=== PATIENT | male | born 1990 | race Hispanic/Latino ===

== ENCOUNTER 2021-11-01 12:56 | Emergency (ER) | payer SELFPAY ==
--- OUTSIDE RECORDS SUMMARY | 2021-11-01 13:00 | XMS REPORT | Continuity of Care Document ---
:1990 Author Organization [facility] t Address [address] [place] [address] Care Team Providers Name Role Phone PCP, PATIENT DOES NOT HAVE A Primary Care Physician Unavaila Lucas Patterson DO Attending Clinician Lucas RODRIGUEZ Attending Clinician Unavailable Steph HERCULES S Attending Clinician Miguel HERCULES Attending Clinician MIGUEL Attending Clinician Unavailable MIGUEL Admitting Clinician Unavailable Payers Payer Name Policy Type Policy Number Effective Date Expiration Date S [facility] [id number] 2019 PPO 00:00:00 Problems Condition Condition Condition Status Onset Resolution Last Treating Co mments Source Name Details Category Date Date Treatment Clinician Date No known No known Disease Unive rs active active ity of problems problems [facility] Allergies, Adverse Reactions, Alerts Allergy Allergy Status Severity Reaction(s) Onset Inactive Treating Comm ents Source Name Type Date Date Clinician NO KNOWN Drug Active Univers ALLERGIE Class ity of S [facility] Social History Social Habit Start Date Stop Date Quantity Comments Source Exposure to Not sure [facility] SARS-CoV-2 (event) Medica l Branch Sex Assigned At [birth year] [facility] 00:00:00 00:00:00 [facility] Smoking Status Start Date Stop Date Source Unknown if ever smoked [facility] Medications Ordered Filled Start Stop Current Ordering Indication Dosage Frequency Signature Comments Components Source Medication Medication Date Date Medication? Clinician (SIG) Name Name aspirin Yes 324mg 324 mg, Univer s chewable 2-15 Oral, ity of tablet 324 15:00: DAILY, [place] mg 00 First dose Medical on Mon Branch 09/21/20 at 0900, Until Discontinu ed, Routine ondansetron 2020- No 4mg 4 mg, Slow Univers (ZOFRAN 09-21 IV Push, ity of (PF)) 10:45: 09:58 ONCE, 1 [place] injection 4 00 :00 dose, Mon Med ical mg 09/21/20 at Branch 0445, DEMETRIO morpHINE 2020- No 4mg 4 mg, Slow Un lauren injection 4 09-21 IV Push, ity of mg 10:45: 09:55 ONCE, 1 [place] 00 :00 dose, Mon Medical 09/21/20 at Branch 0445, STAT KCL 2020- No 40meq 40 mEq, Univers (KLOR-CON 09-21 Oral, ity of M20) tablet 10:45: 09:53 [place] mEq 00 :00 dose, [facility] 09/21/20 at [place] [id number], Routine No known No Univers medications [facility] No known No Univers medications [facility] No known No Univers medications [facility] Vital Signs Vital Name Observation Time Observation Value Comments Source Systolic blood 2021-01-14 01:05:00 110 mm[Hg] Univer sity pressure [facility] Diastolic blood 2021-01-14 01:05:00 88 mm[Hg] Unive [facility] Heart rate 2021-01-14 01:05:00 91 /min [facility] Body temperature 2021-01-14 01:05:00 37.11 Jenn [facility] Respiratory rate 2021-01-14 01:05:00 17 /min [facility] Body height 2021-01-14 01:05:00 185.4 cm [facility] Body weight 2021-01-14 01:05:00 115.667 kg [facility] BMI 2021-01-14 01:05:00 33.64 kg/m2 [facility] Oxygen saturation in 2021-01-14 01:05:00 100 /min [facility] Arterial blood by [facility] Pulse oximetry Branch Systolic blood 2020-09-21 10:10:00 134 mm[Hg] Univer sity of pressure [facility] Branch Diastolic blood 2020-09-21 10:10:00 91 mm[Hg] Unive rsity of pressure [facility] [place] [facility] Heart rate 2020-09-21 10:10:00 64 /min [facility] [place] [facility] Respiratory rate 2020-09-21 09:30:00 12 /min Univ ersity of [facility] [place] [facility] Oxygen saturation in 2020-09-21 09:30:00 100 /min University of Arterial blood by [facility] Pulse oximetry Branch Body temperature 2020-09-21 07:13:00 36 Jenn [address]ity of [facility] Body weight 2020-09-21 07:13:[address] [facility] BMI 2020-09-21 07:13:00 32.10 kg/m2 Universi ty of [facility] Systolic blood 2019-10-05 08:00:00 112 mm[Hg] Univer sity of pressure [facility] Diastolic blood 2019-10-05 08:00:00 66 mm[Hg] Unive rsity of pressure [facility] Heart rate 2019-10-05 08:00:00 79 /min [facility] [place] [facility] Respiratory rate 2019-10-05 08:00:00 15 /min Univ ersity of [facility] [place] [facility] Oxygen saturation in 2019-10-05 08:00:00 98 /min University of Arterial blood by [facility] Pulse oximetry Branch Body temperature 2019-10-05 07:43:00 35.94 Jenn [facility] [place] [facility] ersity of [facility] Body height 2019-10-05 07:43:00 188 cm [facility] [place] [facility] Body weight 2019-10-05 07:43:00 111.131 kg [facility] [place] [facility] BMI 2019-10-05 07:43:00 31.46 kg/m2 [facility] [place] [facility] Procedures Procedure Date / Time Performing Clinician Source Performed CT HEAD WO CONTRAST 2021-01-14 02:16:47 [facility] NOTICE OF PRIVACY 2021-01-14 01:05:51 Doctor Unassigned, [facility] Branch CONSENT/REFUSAL FOR 2021-01-14 01:05:19 Doctor Unassigned, No [facility] AND TREATMENT Name Medical Branch XR CHEST 1 VW 2020-09-21 08:17:03 Gricelda Choi [facility] LIPASE 2020-09-21 07:51:00 Steph Nmliliana [facility] COMP. METABOLIC PANEL 2020-09-21 07:51:00 Gricelda Choi [facility] ([id number]) Medical Branch CBC WITH DIFF 2020-09-21 07:51:00 Gricelda Choi [facility] PROTHROMBIN TIME / INR 2020-09-21 07:51:00 [facility] - [facility] SCREEN 2019-10-05 07:55:00 Miguel [facility] TRIAGE [facility] LIPASE 2019-10-05 07:54:00 Miguel Navid [facility] TROPONIN I 2019-10-05 07:54:00 Navid Geronimo [facility] FREE T4 2019-10-05 07:54:00 Navid Geronimo [facility] THYROID STIMULATING 2019-10-05 07:54:00 Navid Geronimo [facility] HORMONE [facility] HEPATIC FUNCTION PANEL 2019-10-05 07:54:00 Navid Geronimo [facility] ([id number]) (ALB,T.PRO,BILI [facility] Branch T,BU/BC,ALT,AST,ALK PHOS) BASIC METABOLIC PANEL 2019-10-05 07:54:00 Navid Geronimo [facility] (NA, K, CL, CO2, Medical Branch GLUCOSE, BUN, CREATININE, CA) ETHANOL 2019-10-05 07:54:00 Navid Geronimo [facility] CBC WITH DIFFERENTIAL 2019-10-05 07:54:[address] [facility] PROTHROMBIN TIME / INR 2019-10-05 07:54:00 Navid Geronimo [facility] ACTIVATED PARTIAL 2019-10-05 07:54:00 Navid Geronimo [facility] THRMPLAS DARIANA [facility] XR CHEST 1 VW 2019-10-05 07:44:09 Navid Geronimo [facility] EKG-12 LEAD 2019-10-05 07:31:05 Navid Geronimo [facility] Encounters Start End Encounter Admission Attending Care Care Encounter Source Date/Time Date/Time Type Type Clinicians Facility Department ID 2021-01-13 2021-01-13 Emergency Jennifer [facility] [id number] Univers 20:22:00 22:25:00 Lynnette Hernandez [id number] ity of [place] [id number] [facility] [id number] [address] 2021-01-13 2021-01-13 [facility] [id number] Univers 20:22:00 20:22:[address] [facility] [place] 2020-09-21 2020-09-21 Emergency Steph [facility] [id number] Univers 01:12:00 04:26:00 Gricelda Hernandez [id number] ity of [place] [id number] [facility] [id number] [address] 2020-09-21 2020-09-21 Emergency X [facility] ERT [id number] Univers 01:12:00 01:12:[address] [facility] 2019-10-05 2019-10-05 [facility] [id number] Univers 01:34:52 03:02:00 Navid Hernandez [id number] i ty of [place] [id number] [facility] [id number] [address] 2019-10-05 2019-10-05 Emergency [facility] [id number] Univers 01:34:52 03:02:00 NAVID masoud [facility] Results Test Test Test Results Result Source Description Time Comments Comments CT Head W/O 2021-01- No acute intracranial U niversity of Contrast 10 abnormality. Left [facility] 02:30:51 cranial fossa arachnoid B ranch cyst. CT HEAD WO CONTRAST HISTORY: Male 30 years RE[place], h/o brain cyst COMPARISON: None TECHNIQUE: Noncontrast CT images of the head with multiplanar reformats. FINDINGS: Cystic lesion in the left middle cranial fossa with mass effect on theunderlying left temporal pole measures 5.7 x 3.7 cm in axial dimension andlikely reflects an arachnoid cyst. Incidental cavum septa pellucidum et vergae. ?The ventricles and sulci areotherwise normal in size and configuration. No intracranial abnormalitysuch as hemorrhage, edema, midline shift or hydrocephalus. The basalcisterns are patent. Incidental malena cisterna magna. No parenchymal attenuation abnormality. The douglas-white matterdifferentiation is preserved. The calvarium and skull base are intact. ?The paranasal sinuses and mastoidair cells are clear. [facility], Radiant Results Inft User - 01/13/2021 9:[address] HEAD WO CONTRASTHISTORY: Male 30 years [place], h/o brain cyst COMPARISON: NoneTECHNIQUE: Noncontrast CT images of the head with multiplanar reformats.FINDINGS:Cystic lesion in the left middle cranial fossa with mass effect on theunderlying left temporal pole measures 5.7 x 3.7 cm in axial dimension andlikely reflects an arachnoid cyst. Incidental cavum septa pellucidum et vergae. The ventricles and sulci areotherwise normal in size and configuration. No intracranial abnormalitysuch as hemorrhage, edema, midline shift or hydrocephalus. The basalcisterns are patent. Incidental malena cisterna magna.No parenchymal attenuation abnormality. The douglas-white matterdifferentiation is preserved.The calvarium and skull base are intact. The paranasal sinuses and mastoidair cells are clear.IMPRESSIONNo acute intracranial abnormality.Left middle cranial fossa arachnoid cyst. PROTHROMBIN TIME / INR 2020-09-21 08:18:00 Test Item Value Reference Range Interpretation Comme nts PROTIME PATIENT (test code = See_Comment [Automated message] The system 5964-2) which generated this result transmitted ref erence range: 12.0 - 14.7 Seconds. The reference range was not u sed to interpret this result as normal/abnormal. INR (test code = 6301-6) Nor mal INR <1.1; Warfarin Therapeutic ran ge 2.0 to 3.0 or 2.5 to 3.5, dep ending upon the indications. Lab Interpretation (test code = Normal 06674-2) [facility]. METABOLIC PANEL ([id number])2020-09-21 08:17:00 Test Item Value Reference Range Interpretation Comments NA (test code = 139 mmol/L 135-145 8767927768) K (test code = 3.2 mmol/L 3.5-5 L 6683312317) CL (test code = 108 mmol/L 98-108 5343784776) CO2 TOTAL (test code = 22 mmol/L 23-31 L 1914496057) AGAP (test code = 2-16 3433064416) BUN (test code = 8 mg/dL 7-23 2677172070) GLUCOSE (test code = 117 mg/dL 70-110 H 4053889503) CREATININE (test code = 0.75 mg/dL 0.6-1.25 0329457590) TOTAL BILI (test code = 1.4 mg/dL 0.1-1.1 H 1951266706) CALCIUM (test code = 9.2 mg/dL 8.6-10.6 4186395674) T PROTEIN (test code = 7.1 g/dL 6.3-8.2 3507320790) ALBUMIN (test code = 4.4 g/dL 3.5-5 1822016323) ALK PHOS (test code = 64 U/L 34-122 7486844830) ALTv (test code = 51 U/L 5-50 H 1742-6) AST(SGOT) (test code = 35 U/L 13-40 7866821454) eGFR Calculation mL/min/1.73m2 (Non-) (test code = 3892967245) eGFR Calculation mL/min/1.73m2 () (test code = 7290900158) PACHECO (test code = PACHECO) Association of Glomerular Filtration Rate (GFR) and Staging of Kidney Disease* + --+ --+ ------+| GFR (mL/min/1.73 m2) ?| With Kidney Damage ?| ?Without Kidney Damage+ --------+ --------+ +| ?>90 ?| ?Stage one ?| ? Normal ?+ ---+ ---+ -------+| ?60-89 ?| ?Stage two ?| ? Decreased GFR ? + --+ --+ ------+| ?30-59 ?| ?Stage three ?| ? Stage three ? + --+ --+ ------+| ?15-29 ?| ?Stage four ? | ? Stage four ?+ ---+ ---+ -------+| ?<15 (or dialysis) ? ?| ?Stage five ? | ? Stage five ?+ ---+ ---+ -------+ *Each stage assumes the associated GFR level has been in effect for at least three months. ?Stages 1 to 5, with or without kidney disease, indicate chronic kidney disease. Notes: Determination of stages one and two (with eGFR >59mL/min/1.73 m2) requires estimation of kidney damage for at least three months as defined by structural or functional abnormalities of the kidney, manifested by either:Pathological abnormalities or Markers of kidney damage (including abnormalities in the composition of the blood or urine or abnormalities in imaging tests). Lab Interpretation Abnormal (test code = 29417-5) [facility] [id number] 08:16:00 Test Item Value Reference Range Interpretation Comments LIPASE (test code = 2235645469) 241 U/L 0-220 H Lab Interpretation (test code = Abnormal 46095-2) [facility] WITH [id number] 08:03:00 Test Item Value Reference Range Interpretation Comments WBC (test code = See_Comment [Automated 4955-2) message] The sy stem which generated this result transmitted reference range : 4.20 - 10.70 10*3/?L. The reference range was not used to interpret this result as normal/abnormal . RBC (test code = See_Comment [Automated 452-8) message] The sy stem which generated this result transmitted reference range : 4.26 - 5.52 10*6/?L. The reference range was not used to interpret this result as normal/abnormal . HGB (test code = 15.0 g/dL 12.2-16.4 718-7) HCT (test code = 43.3 % 38.4-49.3 4544-3) MCV (test code = 82.8 fL 81.7-95.6 787-2) MCH (test code = 28.7 pg 26.1-32.7 785-6) MCHC (test code = 34.6 g/dL 31.2-35 786-4) RDW-SD (test code = 35.9 fL 38.5-51.6 L 53452-5) RDW-CV (test code = 11.9 % 12.1-15.4 L 788-0) PLT (test code = See_Comment [Automated 777-3) message] The sy stem which generated this result transmitted reference range : 150 - 328 10*3/ ?L. The reference r emiliano was not used to interpret this result as normal/abnormal . MPV (test code = 12.1 fL 9.8-13 43140-5) NRBC/100 WBC (test See_Comment [Automat ed code = 8171435052) message] The system which generated this result transmitted reference range : 0.0 - 10.0 /100 WBCs. The refer ence range was not u sed to interpret th is result as normal/abnormal . NRBC x10^3 (test code <0.01 See_Comment [Auto mated = 2470528778) message] The s ystem which generated this result transmitted reference range : 10*3/?L. The reference range was not used to interpret this result as normal/abnormal . GRAN MAT (NEUT) % 58.1 % (test code = 770-8) IMM GRAN % (test code 1.00 % = 1085993790) LYMPH % (test code = 30.0 % 736-9) MONO % (test code = 6.9 % 5905-5) EOS % (test code = 3.2 % 713-8) BASO % (test code = 0.8 % 706-2) GRAN MAT x10^3(ANC) 4.55 10*3/uL 1.99-6.95 (test code = 7620807060) IMM GRAN x10^3 (test 0.08 10*3/uL 0-0.06 H code = 8127769292) LYMPH x10^3 (test code 2.35 10*3/uL 1.09-3.23 = 731-0) MONO x10^3 (test code 0.54 10*3/uL 0.36-1.02 = 742-7) EOS x10^3 (test code = 0.25 10*3/uL 0.06-0.53 711-2) BASO x10^3 (test code 0.06 10*3/uL 0.01-0.09 = 704-7) Lab Interpretation Abnormal (test code = 52854-3) [facility] STIMULATING [id number] 08:48:00 Test Item Value Reference Range Interpretation Comments TSH (test code = See_Comment [Automated message] 6835620863) The system Lil Monkey Butt generated this result transmitted ref erence range: 0.45 - 4 .70 mIU/L. The refe rence range was not u sed to interpret this result as normal/abnor mal. Lab Interpretation (test Normal code = 93632-5) [facility] [id number] 08:35:00 Test Item Value Reference Range Interpretation Comments FREE T4 (test code = 6746184345) 1.09 ng/dL 0.78-2.2 Lab Interpretation (test code = Normal 34282-1) [facility]evilleTroponin [id number] 08:30:00 Test Item Value Reference Range Interpretation Comments TROPONIN I (test 0.001 ng/mL See_Comment [Automated code = 1820206675) message] The system which generated this result transmitted reference range : <=0.034. The reference range was not used to interpret this result as normal/abnormal . PACHECO (test code = Equal or Less than PACHECO) 0.034 ng/ml---Normal ?Note: Cardiac troponin begins to rise 3-4 hours after the onset of ischemia. Repeat in 4-6 hours if the sample was drawn within 3-4 hours of the onset of the symptom and found normal. Between 0.035 and 0.120 ng/mL--- Borderline. Questionable myocardial injury or necrosis ? ?Note: Serial measurement may be necessary to confirm or exclude the diagnosis of myocardial injury or necrosis; Clinical correlation (symptoms, EKGs, imaging studies, and others) required; Repeat in 4-6 hours if clinically indicated. ? Equal or Higher than 0.121 ng/mL---Abnormal. Myocardial Injury or Necrosis Likely ? Biotin has been reported to cause a negative bias, interpret results relative to patient's use of biotin. ? Lab Interpretation Normal (test code = 01439-4) [facility]OL2020-02-29 08:29:00 Test Item Value Reference Range Interpretation Comments ALCOHOL (test code = <10 mg/dL 9524477191) PACHECO (test code = PACHECO) <10 Zpepdcds42-208 Toxic>100 Depression of [place] [employer] GUIDE>400 Fatalities Reported [facility] Met[facility] Panel (NA, K, CL, CO2, GLUCOSE, BUN, CREATININE, CA)2019-10-05 08:17:00 Test Item Value Reference Range Interpretation Comments NA (test code = 138 mmol/L 135-145 8721965214) K (test code = 3.3 mmol/L 3.5-5 L 8418024706) CL (test code = 108 mmol/L 98-108 5628566934) CO2 TOTAL (test code = 21 mmol/L 23-31 L 5261269585) AGAP (test code = 2-16 3061934786) BUN (test code = 13 mg/dL 7-23 3114318750) GLUCOSE (test code = 113 mg/dL 70-110 H 3528512773) CREATININE (test code = 0.63 mg/dL 0.6-1.25 3272685936) CALCIUM (test code = 8.8 mg/dL 8.6-10.6 5211907123) eGFR Calculation mL/min/1.73m2 (Non-) (test code = 1205477598) eGFR Calculation mL/min/1.73m2 () (test code = 5335338868) PACHECO (test code = PACHECO) Association of Glomerular Filtration Rate (GFR) and Staging of Kidney Disease* + --+ --+ ------+| GFR (mL/min/1.73 m2) ?| With Kidney Damage ?| ?Without Kidney Damage+ --------+ --------+ +| ?>90 ?| ?Stage one ?| ? Normal ?+ ---+ ---+ -------+| ?60-89 ?| ?Stage two ?| ? Decreased GFR ? + --+ --+ ------+| ?30-59 ?| ?Stage three ?| ? Stage three ? + --+ --+ ------+| ?15-29 ?| ?Stage four ? | ? Stage four ?+ ---+ ---+ -------+| ?<15 (or dialysis) ? ?| ?Stage five ? | ? Stage five ?+ ---+ ---+ -------+ *Each stage assumes the associated GFR level has been in effect for at least three months. ?Stages 1 to 5, with or without kidney disease, indicate chronic kidney disease. Notes: Determination of stages one and two (with eGFR >59mL/min/1.73 m2) requires estimation of kidney damage for at least three months as defined by structural or functional abnormalities of the kidney, manifested by either:Pathological abnormalities or Markers of kidney damage (including abnormalities in the composition of the blood or urine or abnormalities in imaging tests). Lab Interpretation Abnormal (test code = 72190-5) [facility] (ALB, T.PRO, BILI T, BU/BC, ALT, AST, ALK PHOS)2019-10-05 08:17:00 Test Item Value Reference Range Interpretation Comments TOTAL BILI (test code = 3559869995) 0.8 mg/dL 0.1-1.1 BILI UNCON (test code = 1409964733) 0.8 mg/dL 0.1-1.1 BILI CONJ (test code = 2880198236) 0.0 mg/dL 0-0.3 T PROTEIN (test code = 1946832831) 6.2 g/dL 6.3-8.2 L ALBUMIN (test code = 4002349779) 4.0 g/dL 3.5-5 ALK PHOS (test code = 6533311902) 51 U/L 34-122 ALTv (test code = 1742-6) 28 U/L 5-50 AST(SGOT) (test code = 5123964758) 24 U/L 13-40 Lab Interpretation (test code = Abnormal 84108-5) [facility]evilleLip[facility] [id number] 08:17:00 Test Item Value Reference Range Interpretation Comments LIPASE (test code = 4310308596) 252 U/L 0-220 H Lab Interpretation (test code = Abnormal 25024-8) [facility] / [facility] - DRUG SCREEN [id number] 08:13:00 Test Item Value Reference Range Interpretation Comments BENZO U (test code = Negative Negative 6950884402) ELENO U (test code = Negative Negative 7978667439) AMPHET (test code = Negative Negative 3338376619) THC (test code = Negative Negative 6975671585) METHADONE (test code = Negative Negative 6991839696) Meth U (test code = Negative Negative 9310537868) OPIATES (test code = Negative Negative 7610433465) Cocaine Metabolite (test Negative Negative code = 9360226572) PROPOXY (test code = Negative Negative 4004657865) Tric U (test code = Negative Negative 8100659451) PCP (test code = Negative Negative 4811203597) OXYCOD (test code = Negative Negative 3961105040) PACHECO (test code = PACHECO) Urine Drug Cutoff Ranges Benzodiazepines: ? ? 150 ng/mLBarbiturates: ?200 ng/mLAmphetamine: ? 500 ng/mLCannabinoids: ?50 ?ng/mLMethadone: ? 200 ng/mLMethamphetamine: ? ? 500 ng/mL Opiates: ? 100 ng/mL or 2000 ng/mLCocaine: ? 150 ng/mLPropoxyphene: ?300 ng/mLTricyclics: ?300 ng/mLOxycodone: ? 100 ng/mLPCP: ? 25 ?ng/mL The results are to be used only for medical (i.e., treatment) purposes. Unconfirmed screening results must not be used for non-medical purposes (e.g., employment testing, legal testing). Lab Interpretation (test Normal code = 95667-9) [facility]evilleProthrombin Time (PT) / [id number] 08:11:00 Test Item Value Reference Range Interpretation Comments PROTIME PATIENT (test See_Comment [Auto mated message] code = 5964-2) The system [employer] generated this result transmitted ref erence range: 12.0 - 1 4.7 Seconds. The re ference range was not u sed to interpret this result as normal/abnor mal. INR (test code = 6301-6) Nor mal INR <1.1; Warfarin Therap eutic range 2.0 to 3. 0 or 2.5 to 3.5, dep ending upon the indica tions. Lab Interpretation (test Normal code = 81721-5) [facility]evilleaPTT2020-02-29 08:10:00 Test Item Value Reference Range Interpretation Comments APTT Patient (test See_Comment [Automat ed code = 3173-2) message] The system which generated this result transmitted reference range : 23 - 38 Seconds . The reference range was not used to interpr et this result as normal/abnormal . PACHECO (test code = PACHECO) The [facility] patient population mean normal value for aPTT is 30 seconds. Lab Interpretation Normal (test code = 24873-7) [facility] WITH [id number] 08:02:00 Test Item Value Reference Range Interpretation Comments WBC (test code = See_Comment [Automated 8590-2) message] The sy stem which generated this result transmitted reference range : 4.20 - 10.70 10*3/?L. The reference range was not used to interpret this result as normal/abnormal . RBC (test code = See_Comment [Automated 789-8) message] The sy stem which generated this result transmitted reference range : 4.26 - 5.52 10*6/?L. The reference range was not used to interpret this result as normal/abnormal . HGB (test code = 15.3 g/dL 12.2-16.4 718-7) HCT (test code = 44.5 % 38.4-49.3 4544-3) MCV (test code = 83.0 fL 81.7-95.6 787-2) MCH (test code = 28.5 pg 26.1-32.7 785-6) MCHC (test code = 34.4 g/dL 31.2-35 786-4) RDW-SD (test code = 36.8 fL 38.5-51.6 L 89922-0) RDW-CV (test code = 12.2 % 12.1-15.4 788-0) PLT (test code = See_Comment [Automated 777-3) message] The sy stem which generated this result transmitted reference range : 150 - 328 10*3/ ?L. The reference r emiliano was not used to interpret this result as normal/abnormal . MPV (test code = 12.4 fL 9.8-13 63634-8) NRBC/100 WBC (test See_Comment [Automat ed code = 6212741572) message] The system which generated this result transmitted reference range : 0.0 - 10.0 /100 WBCs. The refer ence range was not u sed to interpret th is result as normal/abnormal . NRBC x10^3 (test code <0.01 See_Comment [Auto mated = [id number]) message] The s ystem which generated this result transmitted reference range : 10*3/?L. The reference range was not used to interpret this result as normal/abnormal . GRAN MAT (NEUT) % 49.1 % (test code = 770-8) IMM GRAN % (test code 0.80 % = 5843305726) LYMPH % (test code = 39.5 % 736-9) MONO % (test code = 6.7 % 5905-5) EOS % (test code = 3.2 % 713-8) BASO % (test code = 0.7 % 706-2) GRAN MAT x10^3(ANC) 4.32 10*3/uL 1.99-6.95 (test code = 4469245129) IMM GRAN x10^3 (test 0.07 10*3/uL 0-0.06 H code = 3020085360) LYMPH x10^3 (test code 3.47 10*3/uL 1.09-3.23 H = 731-0) MONO x10^3 (test code 0.59 10*3/uL 0.36-1.02 = 742-7) EOS x10^3 (test code = 0.28 10*3/uL 0.06-0.53 711-2) BASO x10^3 (test code 0.06 10*3/uL 0.01-0.09 = 704-7) Lab Interpretation Abnormal (test code = 84593-0) [facility] [id number] 07:54:49Impression: No radiographic evidence of acute cardiopulmonary disease. RL: [id number]: [id number] Examination: Chest one view (portable frontal) Ordering Physician: JANINE GERONIMO History: chest pain Comparison: ?None available Findings: Singleportable view of the chest is submitted for review. Overlying monitoring wires. Pulmonary vascularity appears normal. The lungs are clear. There is nosignificant pleural effusion evident. There is no significant pneumothoraxevident. Heart size is normal. Gamb, Radiant Results Inft User - 10/05/2019 1:55 AM CSTExamination: Chest one view (portable frontal) Ordering Physician: NAVID GERONIMOHistory: chest pain Comparison: None availableFindings: Single portable view of the chest is submitted for review. Overlying monitoring wires.Pulmonary vascularity appears normal. The lungs are clear. There is nosignificant pleural effusion evident. There is no significant pneumothoraxevident. Heart size is nor mal.IMPRESSIONImpression:No radiographic evidence of acute cardiopulmonary disease.RL: 109AF: [id number] signed by Michael Cornelius MD at 10/05/2019 1:54 AMUnLubbock Heart & Surgical Hospital"
[2021-11-01] MEDS ORDERED: hydrOXYzine HCL 25 MG TAB ONE (13:32)
--- NOTE | 2021-11-01 14:36 | ER ---
Nurse's Notes [facility] Name: Toby Duran Jr Age: 31 yrs Sex: Male : 1990 Arrival Date: 11/01/2021 Time: 12:59 Bed 5 Private MD: Diagnosis: Anxiety disorder, unspecified Presentation: 11/01 13:02 Chief complaint: Patient states: i have been having like a lot of random anxiety tw2 lately. and both my ears have been ringing. i have been waking up with really bad reflux for about a week or 2. i thought a lot of weight in the passed 2 months. and i have been having trouble. +N. Coronavirus screen: At this time, the client does not indicate any symptoms associated with coronavirus-19. Ebola Screen: Patient denies travel to an Ebola-affected area in the 21 days before illness onset. Initial Sepsis Screen: Does the patient meet any 2 criteria? No. Patient's initial sepsis screen is negative. Does the patient have a suspected source of infection? No. Patient's initial sepsis screen is negative. Risk Assessment: Do you want to hurt yourself or someone else? Patient reports no desire to harm self or others. Onset of symptoms was November 01, 2021. 13:02 Method Of Arrival: Ambulatory tw2 13:02 Acuity: AMINA 3 tw2 Triage Assessment: 13:05 General: Appears in no apparent distress. uncomfortable, well groomed, Behavior is tw2 calm, cooperative, appropriate for age. Pain: Complains of pain in right ear and left ear. 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 - Social history:: Smoking status: Patient/guardian denies using tobacco, Stopped _ months ago 1. Screenin:48 Abuse screen: Denies threats or abuse. Nutritional screening: No deficits noted. ll1 Tuberculosis screening: No symptoms or risk factors identified. Fall Risk Total Hare Fall Scale indicates No Risk (0-24 pts). Assessment: 14:00 Reassessment: No changes from previously documented assessment. Patient and/or family ll1 updated on plan of care and expected duration. Pain level reassessed. Patient is alert, oriented x 3, equal unlabored respirations, skin warm/dry/pink. 14:48 Reassessment: No changes from previously documented assessment. Patient and/or family ll1 updated on plan of care and expected duration. Pain level reassessed. Patient is alert, oriented x 3, equal unlabored respirations, skin warm/dry/pink. Patient states feeling better. Patient states symptoms have improved. Vital Signs: 13:02 BP 134 / 82; Pulse 89; Resp 17; Temp 97.6(TE); Pulse Ox 98% on R/A; Weight 103.87 kg tw2 (R); Height 6 ft. 1 in. (185.42 cm); Pain 10/10; 14:47 BP 113 / 78; Pulse 70; Resp 16; Pulse Ox 98% on R/A; ll1 13:02 Body Mass Index 30.21 (103.87 kg, 185.42 cm) tw2 ED Course: 12:59 Patient arrived in ED. as 13:04 Triage completed. tw2 13:06 James Yung, DO is Primary Nurse. ll1 13:06 Arm band placed on. tw2 13:06 Patient placed in an exam room, on a stretcher. ll1 13:14 Raymundo Puente NP is PHCP. pm1 13:14 Mukul Gomez MD is Attending Physician. pm1 14:48 No provider procedures requiring assistance completed. Patient did not have IV access ll1 during this emergency room visit. 14:49 Patient has correct armband on for positive identification. Call light in reach. Side ll1 rails up X 1. Pulse ox on. NIBP on. Administered Medications: 13:32 Drug: hydrOXYzine 50 mg Route: PO; ll1 14:26 Follow up: Response: No adverse reaction jh6 14:48 Follow up: Response: No adverse reaction ll1 Outcome: 14:36 Discharge ordered by . pm1 14:48 Discharged to home ambulatory. ll1 14:48 Condition: stable 14:48 Discharge instructions given to patient, Instructed on discharge instructions, follow up and referral plans. medication usage, Demonstrated understanding of instructions, follow-up care, medications, Prescriptions given X 1. 14:49 Patient left the ED. ll1 Signatures: Marta Brantley Patrick, ELECTROENCEPHALOGRAPHIC TECHNOLOGIST ELECTROENCEPHALOGRAPHIC TECHNOLOGIST pm1 Alexus Muñoz RN RN tw2 James Yung RN RN ll1 Lexus Harrell RN RN jh6 Corrections: (The following items were deleted from the chart) 13:05 13:04 PMHx: None; tw2 tw2
--- NOTE | 2021-11-01 14:36 | EDPHYS ---
Physician Documentation [facility] Name: Toby Duran Jr Age: 31 yrs Sex: Male : 1990 Arrival Date: 11/01/2021 Time: 12:59 Bed 5 Private MD: ED Physician Mukul Gomez HPI: 11/01 13:27 This 31 yrs old Male presents to ER via Ambulatory with complaints of trouble pm1 sleeping, anxiety. 13:27 The patient presents to the emergency department with anxiety, over unknown pm1 circumstances, insomnia. Onset: The symptoms/episode began/occurred many years, and became worse 2 month(s) ago. Past psychiatric history: Prior diagnosis: no previous psychiatric diagnosis known, Psychiatric medications include: none, Primary psychiatric physician: the patient does not have a primary psychiatric physician. Associated signs and symptoms: Pertinent positives; Nausea when he wakes up at night with anxiety, insomnia, ringing in his ears, Pertinent negatives: chest pain, shortness of breath. Severity of symptoms: in the emergency department the symptoms are worse. The patient has not recently seen a physician. 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 - Social history:: Smoking status: Patient/guardian denies using tobacco, Stopped _ months ago 1. ROS: 13:27 Constitutional: Negative for fever, chills, and weight loss. pm1 13:27 Cardiovascular: Negative for chest pain, palpitations, and edema, Respiratory: Negative for shortness of breath, cough, wheezing, and pleuritic chest pain. 13:27 Back: Negative for injury and pain, MS/Extremity: Negative for injury and deformity, Skin: Negative for injury, rash, and discoloration, Neuro: Negative for headache, weakness, numbness, tingling, and seizure. 13:27 ENT: Positive for tinnitus, Negative for ear pain. 13:27 Abdomen/GI: Positive for Nausea at night with episodes of anxiety, Negative for abdominal pain, vomiting, diarrhea. 13:27 Psych: Positive for anxiety, Negative for drug dependence, alcohol dependence, homicidal ideation, suicidal ideation. Exam: 13:27 Constitutional: This is a well developed, well nourished patient who is awake, alert, pm1 and in no acute distress. Head/Face: Normocephalic, atraumatic. Cardiovascular: Regular rate and rhythm with a normal S1 and S2. No gallops, murmurs, or rubs. Normal PMI, no JVD. No pulse deficits. Respiratory: Lungs have equal breath sounds bilaterally, clear to auscultation and percussion. No rales, rhonchi or wheezes noted. No increased work of breathing, no retractions or nasal flaring. Skin: Warm, dry with normal turgor. Normal color with no rashes, no lesions, and no evidence of cellulitis. MS/ Extremity: Pulses equal, no cyanosis. Neurovascular intact. Full, normal range of motion. 13:27 Neuro: Exam negative for acute changes, Orientation: is normal, Mentation: is normal, Motor: is normal, moves all fours. 13:27 Psych: Behavior/mood is anxious, Affect is animated, Oriented to person, place, time. Vital Signs: 13:02 BP 134 / 82; Pulse 89; Resp 17; Temp 97.6(TE); Pulse Ox 98% on R/A; Weight 103.87 kg tw2 (R); Height 6 ft. 1 in. (185.42 cm); Pain 10/10; 14:47 BP 113 / 78; Pulse 70; Resp 16; Pulse Ox 98% on R/A; ll1 13:02 Body Mass Index 30.21 (103.87 kg, 185.42 cm) tw2 MDM: 13:14 Patient medically screened. pm1 14:35 Data reviewed: vital signs. Data interpreted: Pulse oximetry: on room air is 98 %. pm1 Interpretation: normal. Counseling: I had a detailed discussion with the patient and/or guardian regarding: the historical points, exam findings, and any diagnostic results supporting the discharge/admit diagnosis, the need for outpatient follow up, for definitive care, a psychiatrist, to return to the emergency department if symptoms worsen or persist or if there are any questions or concerns that arise at home. Administered Medications: 13:32 Drug: hydrOXYzine 50 mg Route: PO; ll1 14:26 Follow up: Response: No adverse reaction jh6 14:48 Follow up: Response: No adverse reaction ll1 Disposition Summary: 11/01/21 14:36 Discharge Ordered Location: Home pm1 Problem: new pm1 Symptoms: have improved pm1 Condition: Stable pm1 Diagnosis - Anxiety disorder, unspecified pm1 Followup: pm1 - With: Emergency Department - When: As needed - Reason: Worsening of condition Followup: pm1 - With: Private Physician - When: 2 - 3 days - Reason: Recheck today's complaints, Continuance of care, Re-evaluation by your physician Discharge Instructions: - Discharge Summary Sheet pm1 - Generalized Anxiety Disorder, Adult pm1 - Managing Anxiety, Adult pm1 Forms: - Medication Reconciliation Form pm1 - Thank You Letter pm1 - Antibiotic Education pm1 - Prescription Opioid Use pm1 Prescriptions: - Hydroxyzine HCl 50 mg Oral Tablet - take 1 tablet by ORAL route every 8 hours As needed; 10 tablet; Refills: 0, pm1 Product Selection Permitted Addendum: 11/04/2021 06:26 Co-signature as Attending Physician, Mukul Gomez MD I agree with the assessment and c beauchamp plan of care. Signatures: Mukul Gomez MD MD cha Marinas, Patrick, SIGNS CLEANER SIGNS CLEANER pm1 Alexus Muñoz RN RN tw2 James Yung RN RN 1 Lexus Harrell RN 6 Corrections: (The following items were deleted from the chart) 11/01 13:05 13:04 PMHx: None; tw2 tw2
[2021-11-01 15:18] VITALS: TEMP 97.6; O2SAT 98
[2021-11-01 15:20] VITALS: BP 113/78
== END 2021-11-01 14:49 | disposition home or self-care (01) ==
LOC: ER 12:56
DX: F41.9 Anxiety disorder, unspecified (principal); Z87.891 Personal history of nicotine dependence
CPT/HCPCS: 99283

== ENCOUNTER 2021-12-10 06:46 | Emergency (ER) | payer SELFPAY ==
--- OUTSIDE RECORDS SUMMARY | 2021-12-10 06:49 | XMS REPORT | Continuity of Care Document ---
:1990 Author Organization [facility] t Address [address] [place] [address] Care Team Providers Name Role Phone Torin VASQUEZ Primary Care Physician Unavailable Ema CHOI Attending Clinician Unavailable Steph HERCULES S Attending Clinician Lucas Rodriguez DO Attending Clinician Lucas RODRIGUEZ Attending Clinician Unavailable Miguel HERCULES Attending Clinician MIGUEL Attending Clinician Unavailable MIGUEL Admitting Clinician Unavailable Payers Payer Name Policy Type Policy Number Effective Date Expiration Date [facility] [id number] 2019 PPO 00:00:00 Problems Condition Condition Condition Status Onset Resolution Last Treating Co mments Source Name Details Category Date Date Treatment Clinician Date No known No known Disease Unive rs active active ity of problems problems [facility] Allergies, Adverse Reactions, Alerts Allergy Allergy Status Severity Reaction(s) Onset Inactive Treating Comm ents Source Name Type Date Date Clinician NO KNOWN Drug Active Univers ALLERGIE Class ity of S [facility] Social History Social Habit Start Date Stop Date Quantity Comments Source Exposure to Not sure [facility] SARS-CoV-2 (event) Medica l Branch Sex Assigned At [birth year] [facility] 00:00:00 00:00:00 Medical Branch Smoking Status Start Date Stop Date Source Unknown if ever smoked [facility] Medications Ordered Filled Start Stop Current Ordering Indication Dosage Frequency Signature Comments Components Source Medication Medication Date Date Medication? Clinician (SIG) Name Name No known No Univers medications 4-11 ity of 02:12: [address] aspirin Yes 324mg 324 mg, Univer s chewable 2-15 Oral, ity of tablet 324 15:00: DAILY, [place] mg 00 First dose Medical on [facility] 09/21/20 at 0900, Until Discontinu ed, Routine ondansetron 2020- No 4mg 4 mg, Slow Univers (ZOFRAN 2-15 -15 IV Push, ity of (PF)) 10:45: 09:58 ONCE, 1 [place] injection 4 00 :00 dose, [facility] Med ical mg 09/21/20 at [place] [id number], DEMETRIO morpHINE 2020- No 4mg 4 mg, Slow Un lauren injection 4 215 -15 IV Push, ity of mg 10:45: 09:55 ONCE, 1 [place] 00 :00 dose, [facility] 09/21/20 at [place] [id number], STAT KCL 2020- No 40meq 40 mEq, Univers (KLOR-CON 2-15 02-15 Oral, ity of M20) tablet 10:45: 09:53 ONCE[place] 1 [place] 40 mEq 00 :00 dose, [facility] 09/21/20 at [place] [id number], Routine No known No Univers medications [facility] No known No Univers medications [facility] No known No Univers medications [facility] Vital Signs Vital Name Observation Time Observation Value Comments Source Systolic blood 2021-11-15 07:10:00 131 mm[Hg] Univer [facility] Diastolic blood 2021-11-15 07:10:00 83 mm[Hg] Unive rsity [facility] Heart rate 2021-11-15 07:10:00 58 /min Universi ty [facility] Respiratory rate 2021-11-15 07:10:00 10 /min [facility] Oxygen saturation in 2021-11-15 07:10:00 100 /min [facility] Arterial blood by [facility] Pulse oximetry [place] Body temperature 2021-11-15 06:57:00 35.94 Jenn [facility] Body height 2021-11-15 06:57:00 185.4 cm [facility] [place] [facility] Body weight 2021-11-15 06:57:00 105.688 kg [facility] [place] [facility] BMI 2021-11-15 06:57:00 30.74 kg/m2 [facility] [place] [facility] Systolic blood 2021-01-14 01:05:00 110 mm[Hg] Univer sity of [facility] [place] [facility] Diastolic blood 2021-01-14 01:05:00 88 mm[Hg] Unive rsity of [facility] [place] [facility] Heart rate 2021-01-14 01:05:00 91 /min [facility] [place] [facility] Body temperature 2021-01-14 01:05:00 37.11 Jenn [facility] [place] [facility] Respiratory rate 2021-01-14 01:05:00 17 /min [facility] [place] [facility] Body height 2021-01-14 01:05:00 185.4 cm [facility] [place] [facility] Body weight 2021-01-14 01:05:00 115.667 kg [facility] [place] [facility] BMI 2021-01-14 01:05:00 33.64 kg/m2 [facility] [place] [facility] Oxygen saturation in 2021-01-14 01:05:00 100 /min University of Arterial blood by [place] [facility] Pulse oximetry Branch Systolic blood 2020-09-21 10:10:00 134 mm[Hg] Univer sity of [facility] [place] [facility] Diastolic blood 2020-09-21 10:10:00 91 mm[Hg] Unive rsity of [facility] [place] [facility] Heart rate 2020-09-21 10:10:00 64 /min [facility] [place] [facility] Respiratory rate 2020-09-21 09:30:00 12 /min [facility] [place] [facility] Oxygen saturation in 2020-09-21 09:30:00 100 /min University of Arterial blood by [place] [facility] chidi Pulse oximetry Branch Body temperature 2020-09-21 07:13:00 36 Jenn [facility] [place] [facility] Body weight 2020-09-21 07:13:00 113.399 kg [facility] [place] [facility] BMI 2020-09-21 07:13:00 32.10 kg/m2 [facility] [place] [facility] Respiratory rate 2019-10-05 08:00:00 15 /min [facility] Oxygen saturation in 2019-10-05 08:00:00 98 /min [facility] Arterial blood by [facility] Pulse oximetry Branch Systolic blood 2019-10-05 08:00:00 112 mm[Hg] Univer sity of pressure [facility] Diastolic blood 2019-10-05 08:00:00 66 mm[Hg] Unive rsity of pressure [facility] Heart rate 2019-10-05 08:00:00 79 /min [facility] Body temperature 2019-10-05 07:43:00 35.94 Jenn [facility] Body height 2019-10-05 07:43:00 188 cm [facility] Body weight 2019-10-05 07:43:00 111.131 kg [facility] BMI 2019-10-05 07:43:00 31.46 kg/m2 [facility] Procedures Procedure Date / Time Performing Clinician Source Performed EKG-12 LEAD 2021-11-15 07:45:18 Gricelda Choi [facility] CT HEAD WO CONTRAST 2021-01-14 02:16:47 [facility] NOTICE OF PRIVACY 2021-01-14 01:05:51 Doctor Unassigned, No [facility] PRACTICES Name [facility] CONSENT/REFUSAL FOR 2021-01-14 01:05:19 [facility] XR CHEST 1 VW 2020-09-21 08:17:03 Gricelda Choi [facility] LIPASE 2020-09-21 07:51:00 Gricelda Choi [facility] COMP. METABOLIC PANEL 2020-09-21 07:51:00 Gricelda Choi [facility] ([id number]) [facility] CBC WITH DIFF 2020-09-21 07:51:00 Gricelda Choi [facility] PROTHROMBIN TIME / INR 2020-09-21 07:51:00 Gricelda Choi [facility] ADC / LCC - DRUG SCREEN 2019-10-05 07:55:00 Navid Geronimo [facility] TRIAGE [facility] LIPASE 2019-10-05 07:54:00 Navid Geronimo [facility] TROPONIN I 2019-10-05 07:54:00 Navid Geronimo [facility] FREE T4 2019-10-05 07:54:00 Navid Geronimo [facility] THYROID STIMULATING 2019-10-05 07:54:00 Navid Geronimo [facility] HORMONE [facility] HEPATIC FUNCTION PANEL 2019-10-05 07:54:00 Navid Geronimo [facility] ([id number]) (ALB,T.PRO,BILI [facility] T,BU/BC,ALT,AST,ALK PHOS) BASIC METABOLIC PANEL 2019-10-05 07:54:00 Navid Geronimo [facility] (NA, K, CL, CO2, Medical Branch GLUCOSE, BUN, CREATININE, CA) ETHANOL 2019-10-05 07:54:00 [facility] DIFFERENTIAL 2019-10-05 07:54:00 Miguel [facility] PROTHROMBIN TIME / INR 2019-10-05 07:54:00 Navid [facility] ACTIVATED PARTIAL 2019-10-05 07:54:00 [facility]W 2019-10-05 07:44:09 Miguel [facility] EKG-12 LEAD 2019-10-05 07:31:05 Miguel [facility] Encounters Start End Encounter Admission Attending Care Care Encounter Source Date/Time Date/Time Type Type Clinicians Facility Department ID 2021-11-15 2021-11-15 Emergency X [facility] ERT [id number] Univers 02:00:00 02:46:00 NYBUTCH [facility] 2021-11-15 2021-11-15 Emergency [facility] [id number] Univers 02:00:00 02:46:00 Gricelda HERNANDEZ [id number] [facility] [id number] [facility] [id number] [place] [id number] Branch 2021-01-13 2021-01-13 Emergency [facility] [id number] Univers 20:22:00 22:25:00 Lynnette Hernandez [id number] ity [facility] [id number] [facility] [id number] [address] 2021-01-13 2021-01-13 Emergency X [facility] ERT [id number] Univers 20:22:00 20:22:[address] [facility] 2020-09-21 2020-09-21 Emergency [facility] [id number] Univers 01:12:00 04:26:00 Gricelda Hernandez [id number] ity [facility] [id number] [facility] [id number] [address] 2020-09-21 2020-09-21 Emergency X [facility] ERT [id number] Univers 01:12:00 01:12:[address] [facility] 2019-10-05 2019-10-05 Emergency [facility] [id number] Univers 01:34:52 03:02:00 Navid Mary [id number] i ty [facility] [id number] [facility] [id number] [address] 2019-10-05 2019-10-05 Emergency [facility] [id number] Univers 01:34:52 03:02:00 NAVID [facility] Results Test Test Test Results Result Source Description Time Comments Comments CT Head W/O 2021-01- No acute intracranial U niversity of Contrast 10 abnormality. 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 [...] indications. Lab Interpretation (test code = Normal 68100-4) [facility]. METABOLIC PANEL ([id number])2020-09-21 08:17:00 Test Item Value Reference Range Interpretation Comments NA (test code = 139 mmol/L 135-145 3709325387) K (test code = 3.2 mmol/L 3.5-5 L 4822616489) CL (test code = 108 mmol/L 98-108 9685102296) CO2 TOTAL (test code = 22 mmol/L 23-31 L 1693326259) AGAP (test code = 2-16 9374412120) BUN (test code = 8 mg/dL 7-23 7098368901) GLUCOSE (test code = 117 mg/dL 70-110 H 7697624090) CREATININE (test code = 0.75 mg/dL 0.6-1.25 4969894012) TOTAL BILI (test code = 1.4 mg/dL 0.1-1.1 H 6236381017) CALCIUM (test code = 9.2 mg/dL 8.6-10.6 2926371168) T PROTEIN (test code = 7.1 g/dL 6.3-8.2 5818793381) ALBUMIN (test code = 4.4 g/dL 3.5-5 4035421568) ALK PHOS (test code = 64 U/L 34-122 9321025910) ALTv (test code = 51 U/L 5-50 H 1742-6) AST(SGOT) (test code = 35 U/L 13-40 8895346490) eGFR Calculation mL/min/1.73m2 (Non-) (test code = 5795793501) eGFR Calculation mL/min/1.73m2 () (test code = 9755715751) PACHECO (test code = PACEHCO) Association of Glomerular Filtration Rate (GFR) and [...] tests). Lab Interpretation Abnormal (test code = 22175-6) [facility], [id number] 08:16:00 Test Item Value Reference Range Interpretation Comments LIPASE (test code = 8074475452) 241 U/L 0-220 H Lab Interpretation (test code = Abnormal 85339-0) [facility] WITH [id number] 08:03:00 Test Item Value Reference Range Interpretation Comments WBC (test code = See_Comment [Automated 8711-2) message] The sy stem which generated this result transmitted reference range : 4.20 - 10.70 10*3/?L. The reference range was not used to interpret this result as normal/abnormal . RBC (test code = See_Comment [Automated 406-8) message] The sy stem which generated this [...] (test code = 35.9 fL 38.5-51.6 L 02479-6) RDW-CV (test code = 11.9 % 12.1-15.4 L 788-0) PLT (test code = See_Comment [Automated 777-3) message] The sy stem which generated this result transmitted reference range : 150 - 328 10*3/ ?L. The reference r emiliano was not used to interpret this result as normal/abnormal . MPV (test code = 12.1 fL 9.8-13 88425-8) NRBC/100 WBC (test See_Comment [Automat ed code = 9410965436) message] The system which generated this result transmitted reference range : 0.0 - 10.0 /100 WBCs. The refer ence range was not u sed to interpret th is result as normal/abnormal . NRBC x10^3 (test code <0.01 See_Comment [Auto mated = 2384386529) message] The s ystem which generated this result transmitted reference range : 10*3/?L. The reference range was not used to interpret this result as normal/abnormal . GRAN MAT (NEUT) % 58.1 % (test code = 770-8) IMM GRAN % (test code 1.00 % = 9792301931) LYMPH % (test code = 30.0 % 736-9) MONO % (test code = 6.9 % 5905-5) EOS % (test code = 3.2 % 713-8) BASO % (test code = 0.8 % 706-2) GRAN MAT x10^3(ANC) 4.55 10*3/uL 1.99-6.95 (test code = 7020814501) IMM GRAN x10^3 (test 0.08 10*3/uL 0-0.06 H code = 5160218501) LYMPH x10^3 (test code 2.35 10*3/uL 1.09-3.23 = 731-0) MONO x10^3 (test code 0.54 10*3/uL 0.36-1.02 = 742-7) EOS x10^3 (test code = 0.25 10*3/uL 0.06-0.53 711-2) BASO x10^3 (test code 0.06 10*3/uL 0.01-0.09 = 704-7) Lab Interpretation Abnormal (test code = 85545-7) [facility] CenterTHYROID STIMULATING [id number] 08:48:00 Test Item Value Reference Range Interpretation Comments TSH (test code = See_Comment [Automated message] 3925863308) The system [employer] generated this result transmitted ref erence range: 0.45 - 4 .70 mIU/L. The refe rence range was not u sed to interpret this result as normal/abnor mal. Lab Interpretation (test Normal code = 67150-1) [facility] CenterFREE [id number] 08:35:00 Test Item Value Reference Range Interpretation Comments FREE T4 (test code = 2976483484) 1.09 ng/dL 0.78-2.2 Lab Interpretation (test code = Normal 29008-0) [facility] CenterTroponin [id number] 08:30:00 Test Item Value Reference Range Interpretation Comments TROPONIN I (test 0.001 ng/mL See_Comment [Automated code = 2648827159) message] The system which generated this result [...] ? Lab Interpretation Normal (test code = 10503-0) [facility] CenterETHANOL2020-02-29 08:29:00 Test Item Value Reference Range Interpretation Comments ALCOHOL (test code = <10 mg/dL 4548967873) PACHECO (test code = PACHECO) <10 Epwogzgc28-059 Toxic>100 Depression of [employer]>400 Fatalities Reported [facility] Metabolic Panel (NA, K, CL, CO2, GLUCOSE, BUN, CREATININE, CA)2019-10-05 08:17:00 Test Item Value Reference Range Interpretation Comments NA (test code = 138 mmol/L 135-145 8378128180) K (test code = 3.3 mmol/L 3.5-5 L 7658089147) CL (test code = 108 mmol/L 98-108 9623314848) CO2 TOTAL (test code = 21 mmol/L 23-31 L 4575055424) AGAP (test code = 2-16 3556859813) BUN (test code = 13 mg/dL 7-23 5874063255) GLUCOSE (test code = 113 mg/dL 70-110 H 5418029235) CREATININE (test code = 0.63 mg/dL 0.6-1.25 2601992257) CALCIUM (test code = 8.8 mg/dL 8.6-10.6 2759621666) eGFR Calculation mL/min/1.73m2 (Non-) (test code = 7445788206) eGFR Calculation mL/min/1.73m2 () (test code = 0621822602) PACHECO (test code = PACHECO) Association of [...] tests). Lab Interpretation Abnormal (test code = 62375-5) [facility] CenterHepatic Function Panel (ALB, T.PRO, BILI T, BU/BC, ALT, AST, ALK PHOS)2019-10-05 08:17:00 Test Item Value Reference Range Interpretation Comments TOTAL BILI (test code = 4379102123) 0.8 mg/dL 0.1-1.1 BILI UNCON (test code = 2920156527) 0.8 mg/dL 0.1-1.1 BILI CONJ (test code = 0076009605) 0.0 mg/dL 0-0.3 T PROTEIN (test code = 3412701285) 6.2 g/dL 6.3-8.2 L ALBUMIN (test code = 7033483596) 4.0 g/dL 3.5-5 ALK PHOS (test code = 3480755194) 51 U/L 34-122 ALTv (test code = 1742-6) 28 U/L 5-50 AST(SGOT) (test code = 8316064866) 24 U/L 13-40 Lab Interpretation (test code = Abnormal 05954-8) [facility] CenterLipase [id number] 08:17:00 Test Item Value Reference Range Interpretation Comments LIPASE (test code = 1052875807) 252 U/L 0-220 H Lab Interpretation (test code = Abnormal 33209-2) [facility] CenterADC / LCC - DRUG SCREEN [id number] 08:13:00 Test Item Value Reference Range Interpretation Comments BENZO U (test code = Negative Negative 2478369689) ELENO U (test code = Negative Negative 7487764988) AMPHET (test code = Negative Negative 7807292751) THC (test code = Negative Negative 5890606761) METHADONE (test code = Negative Negative 1898575396) Meth U (test code = Negative Negative 0120090310) OPIATES (test code = Negative Negative 3138721717) Cocaine Metabolite (test Negative Negative code = 2554894487) PROPOXY (test code = Negative Negative 5058262163) Tric U (test code = Negative Negative 7472499084) PCP (test code = Negative Negative 3321675209) OXYCOD (test code = Negative Negative 7470970819) PACHECO (test code = PACHECO) Urine Drug [...] testing). Lab Interpretation (test Normal code = 53562-5) [facility] CenterProthrombin Time (PT) / [id number] 08:11:00 Test Item Value Reference Range Interpretation Comments PROTIME PATIENT (test See_Comment [Auto mated message] code = 5964-2) The system [employer] generated this result transmitted ref erence range: 12.0 - 1 4.7 Seconds. The re ference range was not u sed to interpret this result as normal/abnor mal. INR (test code = 6301-6) Nor mal INR <1.1; Warfarin Therap eutic range 2.0 to 3. 0 or 2.5 to 3.5, dep ending upon the indica tions. Lab Interpretation (test Normal code = 12590-2) [facility] CenteraPTT2020-02-29 08:10:00 Test Item Value Reference Range Interpretation Comments APTT Patient (test See_Comment [Automat ed code = 3173-2) message] The system which generated this result transmitted reference range : 23 - 38 Seconds . The reference range was not used to interpr et this result as normal/abnormal . PACHECO (test code = PACHECO) The [facility] patient population mean normal value for aPTT is 30 seconds. Lab Interpretation Normal (test code = 78323-8) [facility] CenterCB WITH [id number] 08:02:00 Test Item Value Reference Range Interpretation Comments WBC (test code = See_Comment [Automated 6690-2) message] The sy stem which generated this [...] (test code = 36.8 fL 38.5-51.6 L 54450-9) RDW-CV (test code = 12.2 % 12.1-15.4 788-0) PLT (test code = See_Comment [Automated 777-3) message] The sy stem which generated this result transmitted reference range : 150 - 328 10*3/ ?L. The reference r emiliano was not used to interpret this result as normal/abnormal . MPV (test code = 12.4 fL 9.8-13 72112-6) NRBC/100 WBC (test See_Comment [Automat ed code = 5274302613) message] The system which generated this result transmitted reference range : 0.0 - 10.0 /100 WBCs. The refer ence range was not u sed to interpret th is result as normal/abnormal . NRBC x10^3 (test code <0.01 See_Comment [Auto mated = 8048247404) message] The s ystem which generated this result transmitted reference range : 10*3/?L. The reference range was not used to interpret this result as normal/abnormal . GRAN MAT (NEUT) % 49.1 % (test code = 770-8) IMM GRAN % (test code 0.80 % = 5160480978) LYMPH % (test code = 39.5 % 736-9) MONO % (test code = 6.7 % 5905-5) EOS % (test code = 3.2 % 713-8) BASO % (test code = 0.7 % 706-2) GRAN MAT x10^3(ANC) 4.32 10*3/uL 1.99-6.95 (test code = 2984558877) IMM GRAN x10^3 (test 0.07 10*3/uL 0-0.06 H code = 3720295802) LYMPH x10^3 (test code 3.47 10*3/uL 1.09-3.23 H = 731-0) MONO x10^3 (test code 0.59 10*3/uL 0.36-1.02 = 742-7) EOS x10^3 (test code = 0.28 10*3/uL 0.06-0.53 711-2) BASO x10^3 (test code 0.06 10*3/uL 0.01-0.09 = 704-7) Lab Interpretation Abnormal (test code = 97053-5) [facility] CenterXR CHEST 1 [id number] 07:54:49Impression: No radiographic evidence of acute cardiopulmonary disease. RL: [id number]: [id number] Examination: Chest one view (portable frontal) Ordering Physician: JANINE GERONIMO History: chest pain Comparison: ?None available Findings: Singleportable view of the chest is submitted for review. Overlying monitoring wires. Pulmonary vascularity appears normal. The lungs are clear. There is nosignificant pleural effusion evident. There is no significant pneumothoraxevident. Heart size is normal. [facility], Radiant Results Inft User - 10/05/2019 1:55 [...] mal.IMPRESSIONImpression:No radiographic evidence of acute cardiopulmonary disease.RL: [id number]: [id number] signed by Michael Cornelius MD at 10/05/2019 1:54 [facility]"
--- NOTE | 2021-12-10 07:54 | RAD REPORT ---
EXAM DESCRIPTION: US - Extremity Venous Uni Ltd - 12/10/2021 7:39 am CLINICAL HISTORY: Pain in calf COMPARISON: None. TECHNIQUE: Real-time sonographic evaluation of the right lower extremity deep venous system was perf ormed. FINDINGS: Normal compressibility, flow augmentation, phasic flow and spontaneous flow is identified in the right lower extremity vessels excluding the posterior tibial vein. The posterior tibial vein w as not compressible and no spontaneous flow noted. This extended from the calf to the ankle. . IMPRESSION: Positive for deep venous thrombosis in the right posterior tibial vein. Prelminary results conveyed by the business manager college or university to Dr. Don at time of exam.
--- NOTE | 2021-12-10 08:12 | ER ---
Nurse's Notes [facility] Name: Toby Duran Jr Age: 31 yrs Sex: Male : 1990 Arrival Date: 12/10/2021 Time: 06:54 Bed 4 Private MD: Diagnosis: Acute embolism and thrombosis of unspecified deep veins of right lower extremity Presentation: 12/10 07:10 Chief complaint: Patient states: "I injured my right calf playing with my kids and over jd3 this past week it has been getting worse. now there is swelling and that has traveled to my ankle.". Coronavirus screen: At this time, the client does not indicate any symptoms associated with coronavirus-19. Ebola Screen: No symptoms or risks identified at this time. Initial Sepsis Screen: Does the patient meet any 2 criteria? No. Patient's initial sepsis screen is negative. Does the patient have a suspected source of infection? No. Patient's initial sepsis screen is negative. Risk Assessment: Do you want to hurt yourself or someone else? Patient reports no desire to harm self or others. Onset of symptoms was December 05, 2021. 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 - Social history:: Smoking status: Patient reports the use of cigarette tobacco products, smokes one-half pack cigarettes per day. Screenin:15 Abuse screen: Denies threats or abuse. Nutritional screening: No deficits noted. jd3 Tuberculosis screening: No symptoms or risk factors identified. Fall Risk Ambulatory Aid- None/Bed Rest/Nurse Assist (0 pts). Gait- Normal/Bed Rest/Wheelchair (0 pts) Mental Status- Oriented to own ability (0 pts). Total Hare Fall Scale indicates No Risk (0-24 pts). Assessment: 07:13 General: Appears in no apparent distress. comfortable, Behavior is calm, cooperative, jd3 appropriate for age. Pain: Complains of pain in right calf Quality of pain is described as sharp, tender. Neuro: Level of Consciousness is awake, alert, obeys commands, Oriented to person, place, time, situation. Cardiovascular: Capillary refill < 3 seconds Patient's skin is warm and dry. Respiratory: Airway is patent Respiratory effort is even, unlabored, Respiratory pattern is regular, symmetrical, Denies cough, shortness of breath. GI: No signs and/or symptoms were reported involving the gastrointestinal system. : No signs and/or symptoms were reported regarding the genitourinary system. EENT: No signs and/or symptoms were reported regarding the EENT system. Derm: Skin is intact, Skin is dry, Skin is normal, Skin temperature is warm. Musculoskeletal: Circulation, motion, and sensation intact. Range of motion: intact in all extremities, Swelling present in right ankle and right calf. 08:07 Reassessment: Patient appears in no apparent distress at this time. No changes from j previously documented assessment. Patient and/or family updated on plan of care and expected duration. Pain level reassessed. Patient is alert, oriented x 3, equal unlabored respirations, skin warm/dry/pink. Vital Signs: 07:12 BP 119 / 85; Pulse 74; Resp 17 S; Temp 97.1(TE); Pulse Ox 99% on R/A; Weight 106.59 kg jd3 (R); Height 6 ft. 1 in. (185.42 cm) (R); Pain 10/10; 08:07 BP 127 / 81; Pulse 75; Resp 16 S; Pulse Ox 99% on R/A; jd3 07:12 Body Mass Index 31.00 (106.59 kg, 185.42 cm) jd3 ED Course: 06:54 Patient arrived in ED. bp1 07:01 Carol Don MD is Attending Physician. sp3 07:10 Khari Main, DO is Primary Nurse. jd3 07:12 Triage completed. jd3 07:13 Arm band placed on. jd3 07:15 Patient has correct armband on for positive identification. Bed in low position. Call j light in reach. Side rails up X 1. Pulse ox on. NIBP on. 07:41 US Extremity Venous Unilateral Ltd In Process Unspecified. EDMS 08:10 Joyce Villegas MD is Referral Physician. sp3 08:22 No provider procedures requiring assistance completed. Patient did not have IV access jd3 during this emergency room visit. Administered Medications: 08:15 Drug: Lovenox (enoxaparin) 1 mg/kg Route: Sub-Q; Site: abdomen; jd3 08:23 Follow up: Response: No adverse reaction jd3 Outcome: 08:11 Discharge ordered by MD. sp3 08:22 Discharged to home via wheelchair, with family. jd3 08:22 Condition: stable 08:22 Discharge instructions given to patient, Instructed on discharge instructions, follow up and referral plans. medication usage, Demonstrated understanding of instructions, follow-up care, medications, Prescriptions given X 1. 08:23 Patient left the ED. jd3 Signatures: Dispatcher [employer] Khari Alex RN RN jd3 Adela Nelson Setul, MD MD sp3 Corrections: (The following items were deleted from the chart) 08:07 07:56 Reassessment: Patient appears in no apparent distress at this time. No changes jd3 from previously documented assessment. Patient and/or family updated on plan of care and expected duration. Pain level reassessed. Patient is alert, oriented x 3, equal unlabored respirations, skin warm/dry/pink. jd3
--- NOTE | 2021-12-10 08:12 | EDPHYS ---
Physician Documentation [facility] Name: Toby Duran Jr Age: 31 yrs Sex: Male : 1990 Arrival Date: 12/10/2021 Time: 06:54 Bed 4 Private MD: ED Physician Carol Don HPI: 12/10 07:35 This 31 yrs old Male presents to ER via Wheelchair with complaints of Leg Pain.sp3 07:35 31-year-old male with no significant past medical history presents with right calf pain sp3 for approximately 7 days. Patient states that he was playing with his children and felt a pop and since then has had pain in the musculature extending down into his Achilles tendon. He was able to walk on it but over the last 2 days it has become worse to the point where it is affecting his ambulation. He denies crepitus, numbness or tingling distally, proximal knee pain, or pain anywhere else. He also denies shortness of breath, chest pain, or any other findings on ROS at this time.. 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 - Social history:: Smoking status: Patient reports the use of cigarette tobacco products, smokes one-half pack cigarettes per day. ROS: 07:38 Constitutional: Negative for fever, chills, and weight loss, Eyes: Negative for injury, sp3 pain, redness, and discharge, ENT: Negative for injury, pain, and discharge, Neck: Negative for injury, pain, and swelling, Cardiovascular: Negative for chest pain, palpitations, and edema, Respiratory: Negative for shortness of breath, cough, wheezing, and pleuritic chest pain, Abdomen/GI: Negative for abdominal pain, nausea, vomiting, diarrhea, and constipation, Back: Negative for injury and pain, Skin: Negative for injury, rash, and discoloration, Neuro: Negative for headache, weakness, numbness, tingling, and seizure, Psych: Negative for depression, anxiety, suicide ideation, homicidal ideation, and hallucinations, Allergy/Immunology: Negative for hives, rash, and allergies, Endocrine: Negative for neck swelling, polydipsia, polyuria, polyphagia, and marked weight changes. 07:38 MS/extremity: Positive for 07:38 MS/extremity: Positive for There is tenderness in the right calf extending down into his Achilles tendon. No significant swelling noted. Distal neurovascular exam is normal including dorsalis pedis pulse. Proximal examined the knee and hip is normal as well.. 07:38 All other systems are negative. Exam: 07:40 Constitutional: This is a well developed, well nourished patient who is awake, alert, sp3 and in no acute distress. Head/Face: Normocephalic, atraumatic. Eyes: Pupils equal round and reactive to light, extra-ocular motions intact. Lids and lashes normal. Conjunctiva and sclera are non-icteric and not injected. Cornea within normal limits. Periorbital areas with no swelling, redness, or edema. ENT: Nares patent. No nasal discharge, no septal abnormalities noted. External auditory canals are clear. Oropharynx with no redness, swelling, or masses, exudates, or evidence of obstruction, uvula midline. Mucous membranes moist. Neck: Trachea midline, no thyromegaly or masses palpated, and no cervical lymphadenopathy. Supple, full range of motion without nuchal rigidity, or vertebral point tenderness. No Meningismus. Chest/axilla: Normal chest wall appearance and motion. Nontender with no deformity. No lesions are appreciated. Cardiovascular: Regular rate and rhythm with a normal S1 and S2. No gallops, murmurs, or rubs. Normal PMI, no JVD. No pulse deficits. Respiratory: Lungs have equal breath sounds bilaterally, clear to auscultation and percussion. No rales, rhonchi or wheezes noted. No increased work of breathing, no retractions or nasal flaring. Abdomen/GI: Soft, non-tender, with normal bowel sounds. No distension or tympany. No guarding or rebound. No evidence of tenderness throughout. Back: No spinal tenderness. No costovertebral tenderness. Full range of motion. Neuro: Awake and alert, GCS 15, oriented to person, place, time, and situation. Cranial nerves II-XII grossly intact. Motor strength 5/5 in all extremities. Sensory grossly intact. Cerebellar exam normal. Normal gait. Psych: Awake, alert, with orientation to person, place and time. Behavior, mood, and affect are within normal limits. 07:40 Musculoskeletal/extremity: There is tenderness in the right calf extending down into his Achilles tendon. No significant swelling noted. Distal neurovascular exam is normal including dorsalis pedis pulse. Proximal examined the knee and hip is normal as well.. Vital Signs: 07:12 BP 119 / 85; Pulse 74; Resp 17 S; Temp 97.1(TE); Pulse Ox 99% on R/A; Weight 106.59 kg jd3 (R); Height 6 ft. 1 in. (185.42 cm) (R); Pain 10/10; 08:07 BP 127 / 81; Pulse 75; Resp 16 S; Pulse Ox 99% on R/A; jd3 07:12 Body Mass Index 31.00 (106.59 kg, 185.42 cm) jd3 MDM: 07:01 Patient medically screened. sp3 07:40 Data reviewed: vital signs, nurses notes. ED course: 31-year-old with right calf pain. sp3 Differential includes muscle strain, Achilles tendinitis, DVT, region. Will obtain right lower extremity ultrasound and disposition based on results.. 12/10 07:10 Order name: US Extremity Venous Unilateral Ltd; Complete Time: 07:58 sp3 Administered Medications: 08:15 Drug: Lovenox (enoxaparin) 1 mg/kg Route: Sub-Q; Site: abdomen; jd3 08:23 Follow up: Response: No adverse reaction jd3 Disposition Summary: 12/10/21 08:11 Discharge Ordered Location: Home sp3 Condition: Stable sp3 Diagnosis - Acute embolism and thrombosis of unspecified deep veins of right lower extremity sp3 Followup: sp3 - With: Joyce Villegas MD - When: Upon discharge from the Emergency Department - Reason: Recheck today's complaints Discharge Instructions: - Discharge Summary Sheet sp3 - Deep Vein Thrombosis sp3 Forms: - Medication Reconciliation Form sp3 - Thank You Letter sp3 - Antibiotic Education sp3 - Prescription Opioid Use sp3 Prescriptions: - Eliquis DVT-PE Treat 30D Start 5 mg (74 tabs) Oral tablets,dose pack - take 1 application by ORAL route as directed; 74 tablet; Refills: 0, Product pm1 Selection Permitted Signatures: Dispatcher [employer] Khari Alex RN RN jd3 Carol Don MD MD sp3 Corrections: (The following items were deleted from the chart) 07:40 07:38 MS/extremity: Positive for There is tenderness in the right calf extending down sp3 into his Achilles tendon. No significant swelling noted. Distal neurovascular exam is normal including dorsalis pedis pulse. Proximal examined the knee and hip is normal as well., sp3
[2021-12-10] MEDS ORDERED: ENOXAPARIN 100 MG/ML SYR SQ ONE (08:17)
[2021-12-10 08:29] VITALS: TEMP 97.1; O2SAT 99
[2021-12-10 08:30] VITALS: BP 127/81
== END 2021-12-10 08:23 | disposition home or self-care (01) ==
LOC: ER 06:46
DX: I82.401 Acute embolism and thrombosis of unspecified deep veins of right lower extremity (principal); F17.210 Nicotine dependence, cigarettes, uncomplicated
CPT/HCPCS: 93971; 96372; 99284; J1650

== ENCOUNTER 2021-12-12 15:42 | Inpatient (IN) | payer SELFPAY ==
--- OUTSIDE RECORDS SUMMARY | 2021-12-12 15:45 | XMS REPORT | Continuity of Care Document ---
:[address] [facility] t Address [address] [place] [address] Care Team Providers Name Role Phone Torin VASQUEZ Primary Care Physician Unavailable Ema CHOI Attending Clinician Unavailable Steph HERCULES S Attending Clinician Lucas Rodriguez DO Attending Clinician Lucas RODRIGUEZ Attending Clinician Unavailable Miguel HERCULES Attending Clinician MIGUEL Attending Clinician Unavailable MIGUEL Admitting Clinician Unavailable Payers Payer Name Policy Type Policy Number Effective Date Expiration Date [facility] [id number] 2019 PPO 00:00:00 Problems Condition Condition Condition Status Onset Resolution Last Treating Co mments Source Name Details Category Date Date Treatment Clinician Date No known No known Disease NPI:1 83 active active [id number] problems problems Allergies, Adverse Reactions, Alerts Allergy Allergy Status Severity Reaction(s) Onset Inactive Treating Comm ents Source Name Type Date Date Clinician NO KNOWN Drug Active NPI:183 ALLERGIE Class [id number] S Social History Social Habit Start Date Stop Date Quantity Comments Source Exposure to Not sure NPI:[id number] SARS-CoV-2 (event) Sex Ass[birth year] At [birth year] NPI:[id number] 00:00:00 00:00:00 Smoking Status Start Date Stop Date Source Unknown if ever smoked NPI:[id number] Medications Ordered Filled Start Stop Current Ordering Indication Dosage Frequency Signature Comments Components Source Medication Medication Date Date Medication? 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 I:183 injection 4 -21 09-15 IV Push, 131 8781 mg 10:45: 09:55 ONCE, 1 00 :00 dose, Mon09/21/20 at 0445, STAT KCL 2020- No 40meq 40 mEq, NPI:183 (KLOR-CON 2-15 -15 Oral, [id number] M20) tablet 10:45: 09:53 ONCE, 1 40 mEq 00 :00 dose, Mon09/21/20 at 0445, Routine No known No NPI:183 medications [id number] No known No NPI:183 medications [id number] No known No NPI:183 medications [id number] Vital Signs Vital Name Observation Time Observation Value Comments Source Systolic blood pressure 2021-11-15 07:10:00 131 mm[Hg] Diastolic blood 2021-11-15 07:10:00 83 mm[Hg] NPI:1 [id number] pressure Heart rate 2021-11-15 07:10:00 58 /min NPI:1831 [id number] Respiratory rate 2021-11-15 07:10:00 10 /min Oxygen saturation in 2021-11-15 07:10:00 100 /min Arterial blood by Pulse oximetry Body temperature 2021-11-15 06:57:00 35.94 Jenn Body height 2021-11-15 06:57:00 185.4 cm NPI:1831 [id number] Body weight 2021-11-15 06:57:00 105.688 kg NPI:1831 429246 BMI 2021-11-15 06:57:00 30.74 kg/m2 NPI:1831 [id number] Systolic blood pressure 2021-01-14 01:05:00 110 mm[Hg] Diastolic blood 2021-01-14 01:05:00 88 mm[Hg] NPI:1 [id number] pressure Heart rate 2021-01-14 01:05:00 91 /min NPI:1831 350855 Body temperature 2021-01-14 01:05:00 37.11 Jenn Respiratory rate 2021-01-14 01:05:00 17 /min Body height 2021-01-14 01:05:00 185.4 cm NPI:1831 [id number] Body weight 2021-01-14 01:05:00 115.667 kg NPI:1831 [id number] BMI 2021-01-14 01:05:00 33.64 kg/m2 NPI:1831 [id number] Oxygen saturation in 2021-01-14 01:05:00 100 /min Arterial blood by Pulse oximetry Systolic blood pressure 2020-09-21 10:10:00 134 mm[Hg] Diastolic blood 2020-09-21 10:10:00 91 mm[Hg] NPI:1 [id number] pressure Heart rate 2020-09-21 10:10:00 64 /min NPI:1831 [id number] Respiratory rate 2020-09-21 09:30:00 12 /min Oxygen saturation in 2020-09-21 09:30:00 100 /min Arterial blood by Pulse oximetry Body temperature 2020-09-21 07:13:00 36 Jenn Body weight 2020-09-21 07:13:00 113.399 kg NPI:1831 [id number] BMI 2020-09-21 07:13:00 32.10 kg/m2 NPI:1831 612993 Respiratory rate 2019-10-05 08:00:00 15 /min Oxygen saturation in 2019-10-05 08:00:00 98 /min Arterial blood by Pulse oximetry Systolic blood pressure 2019-10-05 08:00:00 112 mm[Hg] Diastolic blood 2019-10-05 08:00:00 66 mm[Hg] NPI:1 [id number] pressure Heart rate 2019-10-05 08:00:00 79 /min NPI:1831 110340 Body temperature 2019-10-05 07:43:00 35.94 Jenn Body height 2019-10-05 07:43:00 188 cm NPI:1831 [id number] Body weight 2019-10-05 07:43:00 111.131 kg NPI:1831 619208 BMI 2019-10-05 07:43:00 31.46 kg/m2 NPI:1831 [id number] Procedures Procedure Date / Time Performed Performing Clinician [facility] e EKG-12 LEAD 2021-11-15 07:45:18 Boone Choi NPI:[id number] CT HEAD WO CONTRAST 2021-01-14 02:16:47 Lynnette Rodriguez NPI:1 [id number] NOTICE OF PRIVACY 2021-01-14 01:05:51 Doctor Unassigned, No PRACTICES Name CONSENT/REFUSAL FOR 2021-01-14 01:05:19 Doctor Unassigned, No 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 METABOLIC PANEL 2020-09-21 07:51:00 Boone Choi NPI:1 [id number] ([id number]) CBC WITH DIFF 2020-09-21 07:51:00 Boone Choi NPI:[id number] PROTHROMBIN TIME / INR 2020-09-21 07:51:00 Steph, Boone Boo ADC / [facility] - DRUG SCREEN 2019-10-05 07:55:00 Navid Geronimo TRIAGE LIPASE 2019-10-05 07:54:00 Navid Geronimo NPI:[id number] TROPONIN I 2019-10-05 07:54:00 Navid Geronimo NPI:[id number] 81 FREE T4 2019-10-05 07:54:00 Navid Geronimo NPI:[id number] 81 THYROID STIMULATING 2019-10-05 07:54:00 Navid Geronimo NPI:1831 [id number] HORMONE HEPATIC FUNCTION PANEL 2019-10-05 07:54:00 Navid Geronimo NPI:1 [id number] ([id number]) (ALB,T.PRO,BILI T,BU/BC,ALT,AST,ALK PHOS) BASIC METABOLIC PANEL 2019-10-05 07:54:00 Navid Geronimo NPI:18 [id number] (NA, K, CL, CO2, GLUCOSE, BUN, CREATININE, CA) ETHANOL 2019-10-05 07:54:00 Navid Geronimo NPI:[id number] 81 CBC WITH DIFFERENTIAL 2019-10-05 07:54:00 Navid Geronimo NPI:18 [id number] PROTHROMBIN TIME / INR 2019-10-05 07:54:00 Navid Geronimo NPI:1 [id number] ACTIVATED PARTIAL 2019-10-05 07:54:00 Navid Geronimo NPI:[id number] THRMPLAS DARIANA XR CHEST 1 VW 2019-10-05 07:44:09 Navid Geronimo NPI:[id number] 81 EKG-12 LEAD 2019-10-05 07:31:05 Navid Geronimo NPI:[id number] 81 Encounters Start End Encounter Admission Attending Care Care Encounter Source Date/Time Date/Time Type Type Clinicians Facility Department ID 2021-11-15 2021-11-15 Emergency [facility] ERT [id number] NPI:183 02:00:00 02:46:00 BOONE [id number] 1 2021-11-15 2021-11-15 Emergency [facility] [id number] NPI:183 02:00:00 02:46:00 Boone HERNANDEZ 350.1.13.10 [id number] [place] 4.2.7.2.686 [place] [address] [id number] 2021-01-13 2021-01-13 Emergency [facility] [id number] NPI:183 20:22:00 22:25:00 Lynnette Hernandez 350.1.13.10 [id number] [place] 4.2.7.2.686 [place] [address] [id number] 2021-01-13 2021-01-13 Emergency X [facility] ERT [id number] NPI:183 20:22:00 20:22:00 LYNNETTE [id number] 1 2020-09-21 2020-09-21 Emergency [facility] [id number] NPI:183 01:12:00 04:26:00 Boone Hernandez 350.1.13.10 [id number] [place] 4.2.7.2.[address] [place] [address] [id number] 2020-09-21 2020-09-21 Emergency X [facility] ERT [id number] NPI:183 01:12:00 01:12:00 [id number] 1 2019-10-05 2019-10-05 [facility] [id number] NPI:183 01:34:52 03:02:00 Navid Hernandez 350.1.13.10 1 [id number] [place] 4.2.7.2.686 [place] [address] [id number] 2019-10-05 2019-10-05 Emergency X [facility] ERT [id number] NPI:183 01:34:52 03:02:00 NAVID [id number] 1 Results Test Description Test Time Test Comments Results Result [facility] e Comments CT Head W/O 2021-01-05 No acute intracranial N PI:[id number] Contrast 0 abnormality. 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 CT HEAD WO CONTRAST HISTORY: Male [...] paranasal sinuses and mastoidair cells are clear. [facility], Radiant Results Inft User - 01/13/2021 9:32 [...] indications. Lab Interpretation (test code = Normal 51338-3) NPI:[id number]. METABOLIC PANEL (58286)2020-09-21 08:17:00 Test Item Value Reference Range Interpretation Comments NA (test code = 139 mmol/L 135-145 7887076992) K (test code = 3.2 mmol/L 3.5-5 L 3610772531) CL (test code = 108 mmol/L 98-108 8650576268) CO2 TOTAL (test code = 22 mmol/L 23-31 L 9770982734) AGAP (test code = 2-16 8356688492) BUN (test code = 8 mg/dL 7-23 6391458565) GLUCOSE (test code = 117 mg/dL 70-110 H 8130025201) CREATININE (test code = 0.75 mg/dL 0.6-1.25 0053100603) TOTAL BILI (test code = 1.4 mg/dL 0.1-1.1 H 4116181684) CALCIUM (test code = 9.2 mg/dL 8.6-10.6 2279627926) T PROTEIN (test code = 7.1 g/dL 6.3-8.2 7471936675) ALBUMIN (test code = 4.4 g/dL 3.5-5 3831661197) ALK PHOS (test code = 64 U/L 34-122 6195802580) ALTv (test code = 51 U/L 5-50 H 1742-6) AST(SGOT) (test code = 35 U/L 13-40 3399599976) eGFR Calculation mL/min/1.73m2 (Non-) (test code = 6124568790) eGFR Calculation mL/min/1.73m2 () (test code = 3628613269) PACHECO (test code = PACHECO) Association of [...] tests). Lab Interpretation Abnormal (test code = 23149-3) NPI:[id number], [id number] 08:16:00 Test Item Value Reference Range Interpretation Comments LIPASE (test code = 2718043083) 241 U/L 0-220 H Lab Interpretation (test code = Abnormal 15763-8) NPI:[id number] WITH [id number] 08:03:00 Test Item Value Reference Range Interpretation Comments WBC (test code = See_Comment [Automated 7079-2) message] The sy stem which generated this result transmitted reference range : 4.20 - 10.70 10*3/?L. The reference range was not used to interpret this result as normal/abnormal . RBC (test code = See_Comment [Automated 503-8) message] The sy stem which generated this [...] (test code = 35.9 fL 38.5-51.6 L 58868-1) RDW-CV (test code = 11.9 % 12.1-15.4 L 788-0) PLT (test code = See_Comment [Automated 777-3) message] The sy stem which generated this result transmitted reference range : 150 - 328 10*3/ ?L. The reference r emiliano was not used to interpret this result as normal/abnormal . MPV (test code = 12.1 fL 9.8-13 73633-8) NRBC/100 WBC (test See_Comment [Automat ed code = 8386495155) message] The system which generated this result transmitted reference range : 0.0 - 10.0 /100 WBCs. The refer ence range was not u sed to interpret th is result as normal/abnormal . NRBC x10^3 (test code <0.01 See_Comment [Auto mated = 4334299088) message] The s ystem which generated this result transmitted reference range : 10*3/?L. The reference range was not used to interpret this result as normal/abnormal . GRAN MAT (NEUT) % 58.1 % (test code = 770-8) IMM GRAN % (test code 1.00 % = 3592263239) LYMPH % (test code = 30.0 % 736-9) MONO % (test code = 6.9 % 5905-5) EOS % (test code = 3.2 % 713-8) BASO % (test code = 0.8 % 706-2) GRAN MAT x10^3(ANC) 4.55 10*3/uL 1.99-6.95 (test code = 1305921040) IMM GRAN x10^3 (test 0.08 10*3/uL 0-0.06 H code = 8921845378) LYMPH x10^3 (test code 2.35 10*3/uL 1.09-3.23 = 731-0) MONO x10^3 (test code 0.54 10*3/uL 0.36-1.02 = 742-7) EOS x10^3 (test code = 0.25 10*3/uL 0.06-0.53 711-2) BASO x10^3 (test code 0.06 10*3/uL 0.01-0.09 = 704-7) Lab Interpretation Abnormal (test code = 46404-6) NPI:[id number] STIMULATING [id number] 08:48:00 Test Item Value Reference Range Interpretation Comments TSH (test code = See_Comment [Automated message] 9293370785) The system [employer] generated this result transmitted ref erence range: 0.45 - 4 .70 mIU/L. The refe rence range was not u sed to interpret this result as normal/abnor mal. Lab Interpretation (test Normal code = 66335-7) NPI:[id number] 08:35:00 Test Item Value Reference Range Interpretation Comments FREE T4 (test code = 4280414988) 1.09 ng/dL 0.78-2.2 Lab Interpretation (test code = Normal 31632-4) NPI:[id number] [id number] 08:30:00 Test Item Value Reference Range Interpretation Comments TROPONIN I (test 0.001 ng/mL See_Comment [Automated code = 6097394561) message] The system which generated this result [...] ? Lab Interpretation Normal (test code = 72908-3) NPI:[id number] 08:29:00 Test Item Value Reference Range Interpretation Comments ALCOHOL (test code = <10 mg/dL 3011167907) PACHECO (test code = PACHECO) <10 Tekrblyg83-372 Toxic>100 Depression of BODY FITTER>400 Fatalities Reported NPI:[id number] Metabolic Panel (NA, K, CL, CO2, GLUCOSE, BUN, CREATININE, CA)2019-10-05 08:17:00 Test Item Value Reference Range Interpretation Comments NA (test code = 138 mmol/L 135-145 9810010458) K (test code = 3.3 mmol/L 3.5-5 L 2999465996) CL (test code = 108 mmol/L 98-108 3210433011) CO2 TOTAL (test code = 21 mmol/L 23-31 L 5777276905) AGAP (test code = 2-16 1647163561) BUN (test code = 13 mg/dL 7-23 1802813465) GLUCOSE (test code = 113 mg/dL 70-110 H 1264348707) CREATININE (test code = 0.63 mg/dL 0.6-1.25 5120905858) CALCIUM (test code = 8.8 mg/dL 8.6-10.6 0021339427) eGFR Calculation mL/min/1.73m2 (Non-) (test code = 0613359767) eGFR Calculation mL/min/1.73m2 () (test code = 5769955445) PACHECO (test code = PACHECO) Association of [...] tests). Lab Interpretation Abnormal (test code = 87222-2) NPI:[id number] Function Panel (ALB, T.PRO, BILI T, BU/BC, ALT, AST, ALK PHOS)2019-10-05 08:17:00 Test Item Value Reference Range Interpretation Comments TOTAL BILI (test code = 6989829528) 0.8 mg/dL 0.1-1.1 BILI UNCON (test code = 8850114872) 0.8 mg/dL 0.1-1.1 BILI CONJ (test code = 3814094385) 0.0 mg/dL 0-0.3 T PROTEIN (test code = 9654718342) 6.2 g/dL 6.3-8.2 L ALBUMIN (test code = 3096549578) 4.0 g/dL 3.5-5 ALK PHOS (test code = 5950164418) 51 U/L 34-122 ALTv (test code = 1742-6) 28 U/L 5-50 AST(SGOT) (test code = 9004987613) 24 U/L 13-40 Lab Interpretation (test code = Abnormal 91099-6) NPI:[id number] [id number] 08:17:00 Test Item Value Reference Range Interpretation Comments LIPASE (test code = 5495588766) 252 U/L 0-220 H Lab Interpretation (test code = Abnormal 99301-6) NPI:[id number] / [facility] - DRUG SCREEN [id number] 08:13:00 Test Item Value Reference Range Interpretation Comments BENZO U (test code = Negative Negative 2270125464) ELENO U (test code = Negative Negative 4233914736) AMPHET (test code = Negative Negative 5478153902) THC (test code = Negative Negative 3503509179) METHADONE (test code = Negative Negative 5060803795) Meth U (test code = Negative Negative 6203339349) OPIATES (test code = Negative Negative 6070157515) Cocaine Metabolite (test Negative Negative code = 9312881733) PROPOXY (test code = Negative Negative 6236640811) Tric U (test code = Negative Negative 4415528447) PCP (test code = Negative Negative 3754965723) OXYCOD (test code = Negative Negative 3385662694) PACHECO (test code = PACHECO) Urine Drug [...] testing). Lab Interpretation (test Normal code = 26614-3) NPI:[id number] Time (PT) / [id number] 08:11:00 Test Item Value Reference Range Interpretation Comments PROTIME PATIENT (test See_Comment [Auto mated message] code = 5964-2) The system [employer] generated this result transmitted ref erence range: 12.0 - 1 4.7 Seconds. The re ference range was not u sed to interpret this result as normal/abnor mal. INR (test code = 6301-6) Nor mal INR <1.1; Warfarin Therap eutic range 2.0 to 3. 0 or 2.5 to 3.5, dep ending upon the indica tions. Lab Interpretation (test Normal code = 25588-9) NPI:[id number] 08:10:00 Test Item Value Reference Range Interpretation Comments APTT Patient (test See_Comment [Automat ed code = 3173-2) message] The system which generated this result transmitted reference range : 23 - 38 Seconds . The reference range was not used to interpr et this result as normal/abnormal . PACHECO (test code = PACHECO) The [facility] patient population mean normal value for aPTT is 30 seconds. Lab Interpretation Normal (test code = 50499-2) NPI:[id number] WITH [id number] 08:02:00 Test Item Value Reference Range Interpretation Comments WBC (test code = See_Comment [Automated 1190-2) message] The sy stem which generated this [...] (test code = 36.8 fL 38.5-51.6 L 64116-2) RDW-CV (test code = 12.2 % 12.1-15.4 788-0) PLT (test code = See_Comment [Automated 777-3) message] The sy stem which generated this result transmitted reference range : 150 - 328 10*3/ ?L. The reference r emiliano was not used to interpret this result as normal/abnormal . MPV (test code = 12.4 fL 9.8-13 97903-9) NRBC/100 WBC (test See_Comment [Automat ed code = 4901962979) message] The system which generated this result transmitted reference range : 0.0 - 10.0 /100 WBCs. The refer ence range was not u sed to interpret th is result as normal/abnormal . NRBC x10^3 (test code <0.01 See_Comment [Auto mated = 5138907647) message] The s ystem which generated this result transmitted reference range : 10*3/?L. The reference range was not used to interpret this result as normal/abnormal . GRAN MAT (NEUT) % 49.1 % (test code = 770-8) IMM GRAN % (test code 0.80 % = 2482243212) LYMPH % (test code = 39.5 % 736-9) MONO % (test code = 6.7 % 5905-5) EOS % (test code = 3.2 % 713-8) BASO % (test code = 0.7 % 706-2) GRAN MAT x10^3(ANC) 4.32 10*3/uL 1.99-6.95 (test code = 5895704401) IMM GRAN x10^3 (test 0.07 10*3/uL 0-0.06 H code = 6484214283) LYMPH x10^3 (test code 3.47 10*3/uL 1.09-3.23 H = 731-0) MONO x10^3 (test code 0.59 10*3/uL 0.36-1.02 = 742-7) EOS x10^3 (test code = 0.28 10*3/uL 0.06-0.53 711-2) BASO x10^3 (test code 0.06 10*3/uL 0.01-0.09 = 704-7) Lab Interpretation Abnormal (test code = 83276-2) NPI:[id number] CHEST 1 [id number] 07:54:49Impression: No radiographic evidence of acute cardiopulmonary disease. RL: [id number]: [id number] Examination: Chest one view (portable frontal) Ordering [...] view of the chest is submitted for rev iew. Overlying monitoring wires.Pulmonary vascularity appears normal. The lungs are clear. There is nosignificant pleural effusion evident. There is no significant pneumothoraxevident. Heart size is normal.IMPRESSIONImpression:No radiographic evidence of acute cardiopulmonary disease.RL: [id number]: [id number] lectronically signed by Michael Cornelius MD at 10/05/2019 1:54 AMNPI:[id number]"
[2021-12-12 17:37] LABS: Absolute Lymphocytes (CBC) 1.7 K/uL (0.7-4.9); Hematocrit 45.8 % (39.6-49.0); Lymphocytes % 22.2 % (15.3-44.8); MPV 10.2 fL (7.6-11.3); RBC Red Blood Cell Count 5.47 M/uL (4.33-5.43)
[2021-12-12 17:42] LABS: Protime INR 1.2
[2021-12-12 18:08] LABS: ALT/SGPT 35 U/L (12-78); AST/SGOT 18 U/L (15-37); Albumin 3.9 g/dL (3.4-5.0); Alkaline Phosphatase 70 U/L (45-117); BUN Blood Urea Nitrogen 9 mg/dL (7-18); Bicarbonate 26 mmol/L (21-32); Bilirubin Direct 0.2 mg/dL (0-0.2); Bilirubin Total 0.7 mg/dL (0.2-1.0); Glomerular Filtration Rate > 90 mL/min (=/>90); Glucose Level 115 mg/dL (74-106); Magnesium 2.2 mg/dL (1.8-2.4); NT PRO-BNP 31 pg/mL (<125); Potassium 3.6 mmol/L (3.5-5.1); Protein, Total 7.2 g/dL (6.4-8.2); Sodium Level 139 mmol/L (136-145); Troponin High Sensitivity 3.3 pg/mL (<58.9)
--- NOTE | 2021-12-12 18:48 | RAD REPORT ---
EXAM DESCRIPTION: CT - Chest For Pe Angio - 12/12/2021 6:33 pm CLINICAL HISTORY: sob COMPARISON: None. TECHNIQUE: Dynamically enhanced axial 3 mm thick images of the chest were obtained during administra tion of <100> mL Isovue 370 IV contrast. Coronal and oblique reconstruction images were generated and reviewed. Exam utilizes a protocol for optimal evaluation of pulmonary arterial tree. Maximum intensity projections 3D imaging was utilized All CT scans are performed using dose optimization technique as appropriate and may include automated exposure control or mA/KV adjustment according to patient size. FINDINGS: Thrombus within several right lower lobe pulmonary arteries. Small amount of thrombus within left lower lobe pulmonary artery. No thrombus within main/right main or left main pulmonary arteries A thoracic aortic aneurysm is not noted. A pleural effusion is not seen. A pericardial effusion is not seen. A lung consolidation is not present. IMPRESSION: Bilateral pulmonary emboli
--- NOTE | 2021-12-12 18:49 | RAD REPORT ---
EXAM DESCRIPTION: [place] Single View12/12/2021 5:42 pm CLINICAL HISTORY: sob COMPARISON: none FINDINGS: The lungs appear clear of acute infiltrate. The heart is normal size IMPRESSION: No acute abnormalities displayed
--- NOTE | 2021-12-12 18:51 | RAD REPORT ---
[facility] pm CLINICAL HISTORY: Right leg pain COMPARISON: December 10, 2021 FINDINGS: Echogenic material consistent with acute thrombus is present within the right popliteal ve in without significant change the prior exam. Right common femoral, superficial femoral,and popliteal veins are compressible and demonstrate augmen tation. Doppler demonstrates good flow. Grayscale, color and spectral analysis performed on all vessels IMPRESSION: Right popliteal tibial venous thrombosis without significant change
--- NOTE | 2021-12-12 19:22 | EDPHYS ---
Physician Documentation [facility] Name: Toby Duran Jr Age: 31 yrs Sex: Male : 1990 Arrival Date: 12/12/2021 Time: 15:49 Bed 15 Private MD: ED Physician Mukul Gomez HPI: 12/12 16:20 This 31 yrs old Male presents to ER via Ambulatory with complaints of Ankle cp Pain. 16:20 The patient presents with pain, that is acute. cp 16:20 The complaints affect the right ankle. cp 16:20 Context: denies injury. patient diagnosed with right lower extremity DVT 2 days ago. cp Currently taking prescribed Eliquis. 16:20 Associated signs and symptoms: Pertinent positives: calf tenderness, swelling, warmth, cp shortness of breath with exertion, near-syncope. 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 - Social history:: Smoking status: Patient/guardian denies using tobacco. ROS: 16:30 Constitutional: Negative for body aches, chills, fever, poor PO intake. cp 16:30 Eyes: Negative for injury, pain, redness, and discharge. cp 16:30 ENT: Negative for drainage from ear(s), ear pain, sore throat, difficulty swallowing, difficulty handling secretions. 16:30 Cardiovascular: Negative for chest pain. 16:30 Respiratory: Positive for shortness of breath, on exertion. Negative for cough, wheezing. 16:30 Abdomen/GI: Negative for abdominal pain, nausea, vomiting, and diarrhea. 16:30 Back: Negative for pain at rest, pain with movement. 16:30 Skin: Negative for rash. 16:30 Neuro: Positive for near syncope, Negative for altered mental status, headache, weakness. 16:30 All other systems are negative. Exam: 16:18 ECG was reviewed by the Attending Physician. cp 16:35 Constitutional: The patient appears in no acute distress, alert, awake, cp non-diaphoretic, non-toxic, well developed, well nourished. 16:35 Head/Face: Normocephalic, atraumatic. cp 16:35 Eyes: Periorbital structures: appear normal, Conjunctiva: normal, no exudate, no injection, Sclera: no appreciated abnormality, Lids and lashes: appear normal, bilaterally. 16:35 ENT: External ear(s): are unremarkable, Nose: is normal, Mouth: Lips: moist, Oral mucosa: moist, Posterior pharynx: Airway: no evidence of obstruction, patent. 16:35 Neck: ROM/movement: is normal, is supple, without pain, no range of motions limitations. 16:35 Chest/axilla: Inspection: normal, Palpation: is normal, no crepitus, no tenderness. 16:35 Cardiovascular: Rate: tachycardic, Rhythm: regular, Edema: is not appreciated, JVD: is not appreciated. 16:35 Respiratory: the patient does not display signs of respiratory distress, Respirations: normal, no use of accessory muscles, no retractions, labored breathing, is not present, Breath sounds: are clear throughout, no decreased breath sounds, no stridor, no wheezing. 16:35 Abdomen/GI: Inspection: abdomen appears normal, Palpation: abdomen is soft and non-tender, in all quadrants. 16:35 Musculoskeletal/extremity: Extremities: noted in the right leg: pain, tenderness to palpation right ankle area, ROM: full active range of motion, in the right leg, Pulses: noted to be 2+ in the right dorsalis pedis artery, the right leg Sensation intact. 16:35 Neuro: Orientation: to person, place \\T\\ time. Mentation: is normal, Motor: moves all fours, strength is normal, Sensation: is normal. Vital Signs: 16:17 BP 141 / 80; Pulse 102; Resp 18; Temp 98.2; Pulse Ox 100% on R/A; Weight 106.59 kg; ph Height 6 ft. 1 in. (185.42 cm); 17:02 BP 121 / 69; Pulse 87; Resp 18; Pulse Ox 99% on R/A; ld1 18:56 BP 117 / 78; Pulse 67; Resp 18; Pulse Ox 100% on R/A; ld1 19:54 BP 124 / 73; Pulse 65; Resp 18; Pulse Ox 100% on R/A; ld1 16:17 Body Mass Index 31.00 (106.59 kg, 185.42 cm) ph MDM: 16:49 Patient medically screened. marina 18:00 Differential diagnosis: cellulitis, pulmonary embolism, pulmonary infarction. cp 19:05 Data reviewed: vital signs, nurses notes, lab test result(s), EKG, radiologic studies, cp CT scan, ultrasound. 19:05 Test interpretation: by ED physician or midlevel provider: ECG, plain radiologic cp studies. Counseling: I had a detailed discussion with the patient and/or guardian regarding: the historical points, exam findings, and any diagnostic results supporting the discharge/admit diagnosis, lab results, radiology results, the need for further work-up and treatment in the hospital. Physician consultation: Sarah PETERSEN was contacted at 19:05, regarding admission, to the telemetry unit. patient's condition. 12/12 17:13 Order name: Basic Metabolic Panel; Complete Time: 18:16 cp 05/ 18:16 Interpretation: Normal except: GLUC 115. cp / 17:13 Order name: CBC with Diff; Complete Time: 18:16 cp /08 18:16 Interpretation: Normal except: RBC 5.47. cp 12/12 17:13 Order name: LFT's; Complete Time: 18:16 cp / 17:13 Order name: Magnesium; Complete Time: 18:16 cp /08 17:13 Order name: NT PRO-BNP; Complete Time: 18:16 cp /08 17:13 Order name: PT-INR; Complete Time: 18:16 cp /08 17:13 Order name: Troponin HS; Complete Time: 18:16 cp /08 17:13 Order name: XRAY Chest (1 view); Complete Time: 19:01 cp 12/12 19:01 Interpretation: Report review. cp 12/12 17:23 Order name: CT Chest For PE Angio; Complete Time: 19:01 cp / 17:23 Order name: US Extremity Venous Unilateral Ltd; Complete Time: 19:01 cp 12/12 19:01 Interpretation: Report reviewed. cp 12/12 19:30 Order name: COVID-19 SARS RT PCR (Document "Date of Onset" if Symptomatic); Complete ld1 Time: 20:42 12/13 00:45 Order name: Troponin High Sensitivity sb3 12/13 01:21 Order name: Troponin High Sensitivity EDMS 12/12 17:13 Order name: EKG; Complete Time: 17:14 cp 12/12 17:13 Order name: Cardiac monitoring; Complete Time: 17:22 cp 12/12 17:13 Order name: EKG - Nurse/Tech; Complete Time: 17:22 12/12 17:13 Order name: IV Saline Lock; Complete Time: 17:22 cp 12/12 17:13 Order name: Labs collected and sent; Complete Time: 17:22 cp 12/12 17:13 Order name: O2 Per Protocol; Complete Time: 17:16 12/12 17:13 Order name: O2 Sat Monitoring; Complete Time: 17:16 cp 12/13 00:45 Order name: EKG; Complete Time: 00:45 sb3 EC:18 Rate is 83 beats/min. Rhythm is regular. KS interval is normal. QRS interval is normal. cp QT interval is normal. T waves are Inverted in lead aVR. Interpreted by me. Reviewed by me. Administered Medications: 17:22 Not Given (Patient Refused): fentaNYL (PF) 25 mcg IVP once; RASS on ADMIN: Combtv4, ld1 Very Agttd3, Agttd2, Rstlss1, AlertClm0, Drwsy-1, Lt Sdtn-2, Mod Sdtn-3, Dp Sdtn-4, UnArsble-5 20:29 Drug: Lovenox (enoxaparin) 1 mg/kg Route: Sub-Q; Site: abdomen; ld1 05 01:08 Drug: Ativan (LORazepam) 1 mg Route: IVP; Site: right antecubital; kd3 01:08 Drug: Phenergan (promethazine) 12.5 mg Route: IVP; Site: right antecubital; kd3 Disposition Summary: 12/12/21 19:22 Hospitalization Ordered Hospitalization Status: Observation cp Provider: Chris Wilson cp Condition: Stable cp Problem: new cp Symptoms: have improved cp Bed/Room Type: Standard cp Location: [facility] ER HOLD(12/12/21 20:38) Room Assignment: ERHOLD-(12/12/21 20:38) mw Diagnosis - Pulmonary embolism without acute cor pulmonale cp - Acute embolism and thrombosis of unspecified deep veins of right lower extremity cp Forms: - Medication Reconciliation Form cp - SBAR form cp Signatures: Dispatcher [employer] Kaylee Villar RN Mukul Avelar MD MD cha Hall, Patricia, RN RN ph Page, Corey, PA PA cp Dibbern, Lauren RN RN ld1 Radha Pedraza RN RN kd3 Sarah Sosa PA PA sb3 Corrections: (The following items were deleted from the chart) 12/12 20:38 19:22 Telemetry/MedSurg (observation) [facility] 20:38 19:22 [facility]
--- NOTE | 2021-12-12 19:22 | ER ---
Nurse's Notes [facility] Name: Toby Duran Jr Age: 31 yrs Sex: Male : 1990 Arrival Date: 12/12/2021 Time: 15:49 Bed 15 Private MD: Diagnosis: Pulmonary embolism without acute cor pulmonale;Acute embolism and thrombosis of unspecified deep veins of right lower extremity Presentation: 12/12 16:00 Chief complaint: Patient states: Seen in ED on Monday and dx w/ blood clot in R leg, ph d/c w/ Eliquis, states that he has been taking medication as prescribed but is now having pain in R ankle and is concerned. Pt suddenly became dizzy in triage, HR 122. 16:17 Coronavirus screen: Vaccine status: Patient reports being unvaccinated. Ebola Screen: ph No symptoms or risks identified at this time. Initial Sepsis Screen: Does the patient meet any 2 criteria? No. Patient's initial sepsis screen is negative. Does the patient have a suspected source of infection? No. Patient's initial sepsis screen is negative. Risk Assessment: Do you want to hurt yourself or someone else? Patient reports no desire to harm self or others. Onset of symptoms was December 12, 2021. 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 - Social history:: Smoking status: Patient/guardian denies using tobacco. Assessment: 17:02 General: Appears in no apparent distress. comfortable, Behavior is calm, cooperative, ld1 appropriate for age. Pain: Complains of pain in right leg Pain does not radiate. Pain currently is 8 out of 10 on a pain scale. Quality of pain is described as sharp. Neuro: Level of Consciousness is awake, alert, obeys commands, Oriented to person, place, time, situation. Cardiovascular: Capillary refill < 3 seconds Patient's skin is warm and dry. Respiratory: Airway is patent Respiratory effort is even, unlabored, Respiratory pattern is regular, symmetrical. GI: Abdomen is flat, non-distended. : No signs and/or symptoms were reported regarding the genitourinary system. EENT: No signs and/or symptoms were reported regarding the EENT system. Derm: No signs and/or symptoms reported regarding the dermatologic system. Musculoskeletal: No signs and/or symptoms reported regarding the musculoskeletal system. 18:56 Reassessment: Patient appears in no apparent distress at this time. Patient and/or ld1 family updated on plan of care and expected duration. Pain level reassessed. Patient is alert, oriented x 3, equal unlabored respirations, skin warm/dry/pink. Vital Signs: 16:17 BP 141 / 80; Pulse 102; Resp 18; Temp 98.2; Pulse Ox 100% on R/A; Weight 106.59 kg; ph Height 6 ft. 1 in. (185.42 cm); 17:02 BP 121 / 69; Pulse 87; Resp 18; Pulse Ox 99% on R/A; ld1 18:56 BP 117 / 78; Pulse 67; Resp 18; Pulse Ox 100% on R/A; ld1 19:54 BP 124 / 73; Pulse 65; Resp 18; Pulse Ox 100% on R/A; ld1 16:17 Body Mass Index 31.00 (106.59 kg, 185.42 cm) ph ED Course: 15:49 Patient arrived in ED. ds1 15:51 Mukul Duque PA is PHCP. cp 15:51 Mukul Gomez MD is Attending Physician. cp 16:17 Triage completed. ph 16:18 Arm band placed on. EKG completed in triage. Results shown to MD. ph 16:49 Molly Khan, RN is Primary Nurse. ld1 17:04 Patient has correct armband on for positive identification. Placed in gown. Bed in low ld1 position. Call light in reach. Side rails up X2. monitoring and evaluation advisor on. Pulse ox on. NIBP on. Door closed. Noise minimized. Warm blanket given. 17:04 No provider procedures requiring assistance completed. ld1 17:22 Inserted saline lock: 20 gauge in right antecubital area, using aseptic technique. ld1 Blood collected. 17:43 XRAY Chest (1 view) In Process Unspecified. EDMS 18:33 US Extremity Venous Unilateral Ltd In Process Unspecified. EDMS 18:35 CT Chest For PE Angio In Process Unspecified. EDMS 19:20 Primary Nurse role handed off by Molly Khan, RN mw2 19:21 Chris Wilson MD is Hospitalizing Provider. cp 19:54 Molly Khan, RN is Primary Nurse. ld1 19:54 COVID-19 SARS RT PCR (Document "Date of Onset" if Symptomatic) Sent. ld1 20:29 COVID-19 SARS RT PCR (Document "Date of Onset" if Symptomatic) Sent. ld1 12/13 00:55 Troponin High Sensitivity Sent. kd3 Administered Medications: 12/12 17:22 Not Given (Patient Refused): fentaNYL (PF) 25 mcg IVP once; RASS on ADMIN: Combtv4, ld1 Very Agttd3, Agttd2, Rstlss1, AlertClm0, Drwsy-1, Lt Sdtn-2, Mod Sdtn-3, Dp Sdtn-4, UnArsble-5 20:29 Drug: Lovenox (enoxaparin) 1 mg/kg Route: Sub-Q; Site: abdomen; ld1 12/13 01:08 Drug: Ativan (LORazepam) 1 mg Route: IVP; Site: right antecubital; kd3 01:08 Drug: Phenergan (promethazine) 12.5 mg Route: IVP; Site: right antecubital; kd3 Outcome: 12/12 19:22 Decision to Hospitalize by Provider. cp 12/13 12:41 Patient left the ED. vg1 Signatures: Dispatcher [employer] EDND Leticia Perez ds1 Skye Hernández RN RN Mukul Lambert PA PA Oliverio Campbell mw2 Arabella Duran RN RN vg1 Molly Khan, RN RN ld1 Radha Pedraza RN RN kd3
--- NOTE | 2021-12-12 20:23 | P.HP ---
Certification for Inpatient Patient admitted to: Observation With expected LOS: <2 Midnights Patient will require the following post-hospital care: None Practitioner: I am a practitioner with admitting privileges, knowledge of patient current condition, hospital course, and medical plan of care. Services: Services provided to patient in accordance with Admission requirements found in Title 42 Section 412.3 of the Code of Federal Regulations Patient History Date of Service: 12/12/21 Reason for admission: Bilateral PE History of Present Illness: Patient is a 31-year-old male who presented to the ED with complaints of increasing RLE pain and dizziness. He was seen in the ED 2 days ago and diagnosed with a DVT in the RLE, given therapeutic dose Lovenox, and discharged with a prescription for Eliquis. Patient states that he has been taking his medication as prescribed (10mg BID). Repeat ultrasound showed "Right popliteal tibial venous thrombosis without significant change" CT PE protocol revealed bilateral pulmonary emboli. Upon my assessment, patient is tearful and very worried but reports no other issues. Patient denies shortness of breath, dyspnea, and is saturating appropriately on room air. ED provider wishes to admit patient for further observation and treatment. Allergies No Known Allergies Allergy (Unverified 01/20/17 06:20) Home medications list reviewed: Yes (NA) - Past Medical/Surgical History Diabetic: No Past Medical History: Patient denies medical history Past Surgical History: Patient denies surgical history Psychosocial/ Personal History: Patient lives at home with his family. - Social History Smoking Status: Current every day smoker Alcohol use: No CD- Drugs: No Caffeine use: Yes Place of Residence: Home Review of Systems 10-point ROS is otherwise unremarkable General: As per HPI Musculoskeletal: Leg Pain Physical Examination - Physical Exam General: Alert, In no apparent distress, Other (Tearful, anxious) HEENT: Atraumatic, PERRLA, Mucous membr. moist/pink, EOMI, Sclerae nonicteric Neck: Supple, 2+ carotid pulse no bruit, No LAD, Without JVD or thyroid abnormality Respiratory: Clear to auscultation bilaterally, Normal air movement Cardiovascular: Regular rate/rhythm, Normal S1 S2 Gastrointestinal: Normal bowel sounds, No tenderness Musculoskeletal: Swelling (RLE), Tenderness (RLE) Integumentary: No rashes Neurological: Normal speech, Normal strength at 5/5 x4 extr, Normal tone, Normal affect - Studies Laboratory Data (last 24 hrs) 12/12/21 17:23: PT 13.3 H, INR 1.20 12/12/21 17:23: WBC 7.5, Hgb 15.6, Hct 45.8, Plt Count 177 12/12/21 17:23: Sodium 139, Potassium 3.6, BUN 9, Creatinine 0.87, Glucose 115 H, Magnesium 2.2, Total Bilirubin 0.7, AST 18, ALT 35, Alkaline Phosphatase 70 Assessment and Plan - Problems (Diagnosis) (1) Bilateral pulmonary embolism Current Visit: Yes Status: Acute (2) Acute deep vein thrombosis (DVT) of right popliteal vein Current Visit: Yes Status: Acute - Plan -Patient diagnosed with DVT 2 days ago and has been taking eliquis 10 mg BID -Pulmonology consulted. Patient without any difficulty breathing and saturating well. -Given 1mg/kg Lovenox in the ED. continue every 12 hours for now and await pulmonology recommendation -Admitted for observation. Monitor on telemetry. -Patient is tearful and concerned about his condition. Valium ordered PRN anxiety -Patient reports he is an everyday smoker but has not smoked since he found out about his DVT 2 days ago. Nicotine patch PRN Discharge Plan: Home Plan to discharge in: 24 Hours - Advance Directives Does patient have a Living Will: No Does patient have a Durable POA for Healthcare: No - Code Status/Comfort Care Code Status Assessed: Yes (Full) Critical Care: No Time Spent Managing Pts Care (In Minutes): 50
[2021-12-12] MEDS ORDERED: ENOXAPARIN 100 MG/ML SYR SQ ONE (20:25)
[2021-12-12] MEDS ORDERED: ONDANSETRON 4 MG/2 ML VIAL IV PRN (22:24)
[2021-12-12] MEDS ORDERED: ALBUTEROL 2.5 MG/3 ML NEB SOL NEB PRN (22:24)
[2021-12-12] MEDS ORDERED: NICOTINE 14 MG/PAT TD PRN (22:24)
[2021-12-12] MEDS ORDERED: ACETAMINOPHEN 500 MG TAB PO PRN (22:24)
[2021-12-12] MEDS ORDERED: DIAZEPAM 5 MG TABLET PO PRN (22:24)
[2021-12-13] MEDS ORDERED: PROMETHAZINE INJ 25 MG/ML AMP ONE (01:05)
[2021-12-13] MEDS ORDERED: LORazepam 2 MG/ML VIAL ONE (01:05)
[2021-12-13 02:48] VITALS: BMI 30.7
[2021-12-13] MEDS ORDERED: WARFARIN SODIUM 5 MG TAB PO ONE (07:22)
[2021-12-13] MEDS ORDERED: APIXABAN 5 MG TABLET ONE (08:19)
[2021-12-13 08:24] VITALS: TEMP 98.1
--- NOTE | 2021-12-13 08:54 | EKG ---
Test Date: 2021-12-13 Test Time: 04:42:24 Landing Support Specialist: MEASUREMENT RESULTS: Intervals: Rate: 105 CT: 142 QRSD: 86 QT: 338 QTc: 446 [place]: P: 74 CT: 142 QRS: 71 T: 57 INTERPRETIVE STATEMENTS: Sinus tachycardia Nonspecific ST abnormality Abnormal ECG Compared to ECG 12/13/2021 00:48:23 ST (T wave) deviation now present Atrial flutter no longer present Electronically Signed On 12-13-21 08:54:15 CDT by Ayo De Leon
--- NOTE | 2021-12-13 08:55 | EKG ---
Test Date: 2021-12-13 Test Time: 00:48:23 Certified Vehicle Fire Investigator: NABEEL MEASUREMENT RESULTS: Intervals: Rate: 97 UT: QRSD: 90 QT: 338 QTc: 429 [place]: P: 71 UT: QRS: 62 T: 60 INTERPRETIVE STATEMENTS: normal ecg Electronically Signed On 12-13-21 08:55:05 CDT by Ayo De Leon
--- NOTE | 2021-12-13 08:57 | EKG ---
Test Date: 2021-12-12 Test Time: 16:12:43 Rehabilitator: PH MEASUREMENT RESULTS: Intervals: Rate: 83 HI: 138 QRSD: 90 QT: 352 QTc: 413 [place]: P: 62 HI: 138 QRS: 56 T: 63 INTERPRETIVE STATEMENTS: Normal sinus rhythm Possible Left atrial enlargement Borderline ECG Compared to ECG 01/20/2017 05:47:25 No significant changes Electronically Signed On 12-13-21 08:56:20 CDT by Ayo De Leon
[2021-12-13] MEDS ORDERED: APIXABAN 5 MG TABLET PO SCH (09:00)
[2021-12-13] MEDS ORDERED: ENOXAPARIN 100 MG/ML SYR SQ SCH (09:00)
--- NOTE | 2021-12-13 09:29 | P.PN ---
Subjective Date of Service: 12/13/21 Chief Complaint: Bilateral PE Subjective: No new changes, Improving Physical Examination - Vital Signs Temperature: 98.1 F Blood Pressure: 112/74 Pulse: 80 Respirations: 16 Pulse Ox (%): 99 - Physical Exam General: Alert, Oriented x3 HEENT: Atraumatic, Normocephalic Respiratory: Normal air movement Cardiovascular: Regular rate/rhythm, Normal S1 S2 Gastrointestinal: Soft and benign Musculoskeletal: No swelling Neurological: Normal speech - Studies Laboratory Data (last 24 hrs) 12/12/21 17:23: PT 13.3 H, INR 1.20 12/12/21 17:23: WBC 7.5, Hgb 15.6, Hct 45.8, Plt Count 177 12/12/21 17:23: Sodium 139, Potassium 3.6, BUN 9, Creatinine 0.87, Glucose 115 H, Magnesium 2.2, Total Bilirubin 0.7, AST 18, ALT 35, Alkaline Phosphatase 70 Assessment And Plan - Plan Assessment and Plan - Problems (Diagnosis) (1) Bilateral pulmonary embolism Current Visit: Yes Status: Acute (2) Acute deep vein thrombosis (DVT) of right popliteal vein Current Visit: Yes Status: Acute - Plan -Patient diagnosed with DVT 2 days ago and has been taking eliquis 10 mg BID -Pulmonology consulted. Patient without any difficulty breathing and saturating well. -Given 1mg/kg Lovenox in the ED. continue every 12 hours for now and await pulmonology recommendation -Admitted for observation. Monitor on telemetry. -Patient is tearful and concerned about his condition. Valium ordered PRN anxi ety -Patient reports he is an everyday smoker but has not smoked since he found out about his DVT 2 days ago. Nicotine patch PRN Discharge Plan: Home Plan to discharge in: 24 Hours
--- NOTE | 2021-12-13 10:27 | P.DS ---
Admission Date: 12/13/21 Discharge Date: 12/13/21 Reason for Admission: Bilateral PE Vital Signs/Physical Exam: Temp Pulse Resp BP Pulse Ox 98.1 F 80 16 112/74 99 12/13/21 09:28 12/13/21 09:28 12/13/21 09:28 12/13/21 09:28 12/13/21 09:28 Laboratory Data at Discharge: WBC 7.5 K/uL (4.3-10.9) 12/12/21 17:23 Hgb 15.6 g/dL (13.6-17.9) 12/12/21 17:23 Hct 45.8 % (39.6-49.0) 12/12/21 17:23 Plt Count 177 K/uL (152-406) 12/12/21 17:23 PT 13.3 SECONDS (9.5-12.5) H 12/12/21 17:23 INR 1.20 12/12/21 17:23 Sodium 139 mmol/L (136-145) 12/12/21 17:23 Potassium 3.6 mmol/L (3.5-5.1) 12/12/21 17:23 BUN 9 mg/dL (7-18) 12/12/21 17:23 Creatinine 0.87 mg/dL (0.55-1.3) 12/12/21 17:23 Glucose 115 mg/dL (74-106) H 12/12/21 17:23 Magnesium 2.2 mg/dL (1.8-2.4) 12/12/21 17:23 Total Bilirubin 0.7 mg/dL (0.2-1.0) 12/12/21 17:23 AST 18 U/L (15-37) 12/12/21 17:23 ALT 35 U/L (12-78) 12/12/21 17:23 Alkaline Phosphatase 70 U/L (45-117) 12/12/21 17:23 Home Medications: NK [No Home Meds] 12/13/21 Followup: George Cabral MD [Primary Care Provider] -
--- NOTE | 2021-12-13 11:58 | P.CNS ---
Date of Consult: 12/13/21 Reason for Consult: Pulmonary embolism Chief Complaint: Bilateral PE History of Present Illness: Patient is 31 years of age admitted with DVT and pulmonary embolism he was here 2 days ago was started on Eliquis that he bought from the pharmacy just only started on Monday started complaining of sdiscomfort in his right calf and see admission to the ER he is back to his baseline denies any shortness of breath saturation vital signs all satisfactory Allergies No Known Allergies Allergy (Unverified 01/20/17 06:20) Home Medications: Apixaban [Eliquis] 10 mg PO BID tablet 12/13/21 - Past Medical/Surgical History Diabetic: No -: Recent diagnosis of DVT and pulmonary embolism Psychosocial/ Personal History: Patient lives at home with his family. - Social History Smoking Status: Current every day smoker Alcohol use: No CD- Drugs: No Caffeine use: Yes Place of Residence: Home Review of Systems 10-point ROS is otherwise unremarkable Physical Examination Temp Pulse Resp BP Pulse Ox 98.1 F 80 16 112/74 99 12/13/21 10:29 12/13/21 10:29 12/13/21 10:29 12/13/21 10:29 12/13/21 10:29 General: Alert, Oriented x3 HEENT: Atraumatic Neck: Supple Respiratory: Clear to auscultation bilaterally Cardiovascular: No edema, Regular rate/rhythm Gastrointestinal: Normal bowel sounds, Soft and benign Integumentary: Other (Right leg is slightly swollen) Laboratory Data (last 24 hrs) 12/12/21 17:23: PT 13.3 H, INR 1.20 12/12/21 17:23: WBC 7.5, Hgb 15.6, Hct 45.8, Plt Count 177 12/12/21 17:23: Sodium 139, Potassium 3.6, BUN 9, Creatinine 0.87, Glucose 115 H, Magnesium 2.2, Total Bilirubin 0.7, AST 18, ALT 35, Alkaline Phosphatase 70 - Problems (1) Bilateral pulmonary embolism Current Visit: Yes Status: Acute Plan: Patient is 31 years of age admitted with DVT pulmonary embolism currently hemodynamically counseled patient to continue taking his Eliquis as prescribed 10 mg twice a day for 7 days then 5 mg twice a day to follow-up with Dr. Cabral most recent labs reviewed to new with at least 6 months of anticoagulation possibly indefinitely and is self-pay Hannah is expensive advised to follow-up with me in the clinic no obvious risk factors for pulmonary embolism
[2021-12-13 12:40] VITALS: BP 117/73
[2021-12-13 12:51] VITALS: O2SAT 100
[2021-12-14] MEDS ORDERED: WARFARIN SODIUM 5 MG TAB PO SCH (17:00)
== END 2021-12-13 12:40 | disposition home or self-care (01) | DRG 176 ==
LOC: ER 15:42 → ERHOLD 20:16 → OBSVTOIN 12-13 07:59
PROVIDERS: ADMIT Hospitalist; ATTEND Hospitalist
DX: I26.99 Other pulmonary embolism without acute cor pulmonale (principal); I82.431 Acute embolism and thrombosis of right popliteal vein; F41.9 Anxiety disorder, unspecified; Z20.822 Contact with and (suspected) exposure to COVID-19
CPT/HCPCS: 36415; 71045; 71275; 80048; 80076; 83735; 83880; 84484; 85025; 85610; 93005; 93971; 96372; 96374; 96375; 99284; G0378; J1650; J2550; Q9967; U0003